=== PATIENT | male | born 1960 ===

== ENCOUNTER 2021-06-06 23:41 | Inpatient (IN) | payer SELFPAY ==
[~2021-06-06] VITALS: Ht 185 cm; Wt 159.1 kg
[2021-06-07] VITALS (25 sets, daily range): BP systolic 109–159; BP diastolic 77–122
[2021-06-07 05:17] LABS: BASOPHILS % (AUTO) 0 % (0-10); EOSINOPHILS % (AUTO) 0 % (0-10); HEMATOCRIT 43 % (40-54); HEMOGLOBIN 12.6 g/dL (13.3-17.7); LYMPHOCYTES # (AUTO) 0.4 10^3/uL (1.0-4.0); LYMPHOCYTES % (AUTO) 6 % (12-44); MEAN CORPUSCULAR HEMOGLOBIN 25 pg (25-34); MEAN CORPUSCULAR HGB CONC 30 g/dL (32-36); MEAN CORPUSCULAR VOLUME 85 fL (80-99); MEAN PLATELET VOLUME 10.4 fL (9.0-12.2); MONOCYTES # (AUTO) 0.1 10^3/uL (0.0-1.0); MONOCYTES % (AUTO) 1 % (0-12); NEUTROPHILS # (AUTO) 6.7 10^3/uL (1.8-7.8); NEUTROPHILS % (AUTO) 93 % (42-75); PLATELET COUNT 175 10^3/uL (130-400); WHITE BLOOD COUNT 7.2 10^3/uL (4.3-11.0)
[2021-06-07 05:38] LABS: POTASSIUM 6.2 MMOL/L (3.6-5.0)
[2021-06-07 05:43] LABS: CREATININE SERUM 1.05 MG/DL (0.60-1.30)
[2021-06-07 06:18] LABS: BAND NEUTROPHILS 1 %; HYPOCHROMASIA SLIGHT; LYMPHOCYTES % (MANUAL) 8 %; NEUTROPHILS % (MANUAL) 91 %
[2021-06-07 06:19] LABS: MICROCYTOSIS SLIGHT; PLATELET CLUMPS MARKED
[2021-06-07] MEDS ORDERED: RT-ALBUTEROL/IPRATROPIUM 3 ML (DUONEB) VIAL INH PRN (08:00)
--- NOTE | 2021-06-07 09:48 | Tele-ICU Progress Note ---
Progress Note video rounds completed 60 y/o male admitted with CHF and HTN Cardiology on consult K 6.2 will give glucose and insulin and recheck Focused Exam Height, Weight, BMI Height: '" Weight: lbs. oz. kg; 49.52 BMI Method: Laboratory Tests 06/07/21 04:15 TRAVON CORDOVA MD Jun 07, 2021 09:48
[2021-06-07] MEDS ORDERED: DEXTROSE 50% 50 ML (IMS) SYR IV ONE (10:00)
[2021-06-07] MEDS ORDERED: CALCIUM GLUC. 10% 4.65 MEQ/10 ML VIAL IV ONE (10:00)
[2021-06-07] MEDS ORDERED: inSUlin (REGULAR) HUMAN 1 UNIT/0.01 ML (CHARGE PER UNIT) IV ONE (10:00)
[2021-06-07] MEDS: RT-ALBUTEROL/IPRATROPIUM 3 ML (DUONEB) VIAL INH SCH ×4 (10:06→21:12)
--- NOTE | 2021-06-07 10:49 | Diagnostic Imaging Report ---
EXAM: Portable erect AP chest at 10:08 AM INDICATION: Congestive failure COMPARISON: There are no prior studies available for comparison. FINDINGS: The heart is enlarged. The central pulmonary vascularity does not seem to be engorged and at this time, there is no evidence for overt congestive failure. However, there is slight blunting of the right costophrenic angle. Whether this is due to pleural thickening or to a small effusion is not certain. There is no evidence for pneumonia and the mediastinum is not widened. The osseous structures are intact. IMPRESSION: There is cardiomegaly but there is no evidence for overt congestive failure or pneumonia. There may be a small amount of fluid in the right lung base however. Dictated by: Dictated on workstation # [id number]
[2021-06-07] MEDS ORDERED: meTOprolol 5 MG/5 ML (LOPRESSOR) VIAL IV ONE (11:00)
[2021-06-07] MEDS ORDERED: FUROSEMIDE 40 MG/4 ML INJ (LASIX) IVP ONE (11:00)
[2021-06-07] MEDS: ENOXAPARIN 40 MG/0.4 ML (LOVENOX) SYR SC SCH ×2 (12:09→22:26)
[2021-06-07 14:34] LABS: ABG BASE EXCESS 6.2 MMOL/L (-2.5-2.5); ABG OXYGEN SATURATION 96 % (94-100); ABG PO2 96 MMHG (79-93); ABG TCO2 35.5 MMOL/L (21.0-31.0)
--- NOTE | 2021-06-07 14:36 | History & Physical-Hospitalist ---
History of Present Illness HPI/Chief Complaint Deven Rivera is a 60-year-old male with past medical history of hypertension, atrial fibrillation, coronary artery disease, congestive heart failure, morbid obesity, tobacco abuse, who presented with shortness of breath. He reports that his legs have been getting more and more swollen. He reports that he has swell ing up to his thighs and his abdomen. He has not been taking his medications for about a month. It is unclear why he has not been taking them. He denies fevers and chills. He denies cough. He denies abdominal pain, nausea, vomiting, and diarrhea. He is a current every day smoker. He lives in [place], [place]. Source: patient Exam Limitations: no limitations Date Seen 06/07/21 Time Seen by a Provider: 10:20 Attending Physician Brenda Landry MD PCP Referring Physician Date of Admission Jun 07, 2021 at 01:24 Home Medications & Allergies Home Medications Reviewed patient Home Medication Reconciliation performed by pharmacy medication reconciliations radiation protection technician and/or nursing. Patients Allergies have been reviewed. Allergies Allergies Coded Allergies Penicillins (Verified Allergy, Unknown, 06/07/21) Past Bjhdppg-Etqyop-Sgijya Hx Patient Social History Tobacco Use?: Yes Tobacco type used: Cigarettes Smoking Status: Current Everyday Smoker Substance use?: Yes Alcohol Use?: No Current Status Communicates: Verbally Primary Language: Moroccan Preferred Spoken Language: Moroccan Is interpretation needed?: No Past Medical History Atrial Fibrillation, Chronic Edema/Swelling, Heart Attack, Hypertension Family Medical History No Pertinent Family Hx Review of Systems Constitutional: no symptoms reported EENTM: no symptoms reported Respiratory: short of breath Cardiovascular: no symptoms reported Gastrointestinal: no symptoms reported Genitourinary: no symptoms reported Musculoskeletal: no symptoms reported Skin: no symptoms reported Psychiatric/Neurological: No Symptoms Reported Physical Exam Physical Exam Vital Signs Vital Signs - First Documented 06/07/21 06/07/21 01:31 02:58 Temp 36.5 Pulse 104 Resp 24 B/P (MAP) 132/103 (113) Pulse Ox 98 O2 Delivery NIV Bilevel O2 Flow Rate 50.00 FiO2 50 Capillary Refill : Height, Weight, BMI Height: '" Weight: lbs. oz. kg; 49.52 BMI Method: General Appearance: No Apparent Distress, Obese HEENT: PERRL/EOMI, Pharynx Normal Neck: Normal Inspection, Supple Respiratory: No Respiratory Distress, Crackles Cardiovascular: Regular Rate, Rhythm, No Murmur Gastrointestinal: Normal Bowel Sounds, Non Tender, Soft Extremity: Non Tender, Pedal Edema, Other (Chronic venous stasis dermatitis) Neurologic/Psychiatric: Alert, Oriented x3 Skin: Normal Color, Warm/Dry Results Results/Procedures Labs Laboratory Tests 06/07/21 04:15 06/07/21 12:35 Patient resulted labs reviewed. Imaging: Reviewed Imaging Report Assessment/Plan Admission Diagnosis Acute on chronic congestive heart failure Admission Status: Inpatient Order (span 2 midnights) Reason for Inpatient Admission: Heart failure requiring IV diuresis Assessment and Plan Acute on chronic congestive heart failure Paroxysmal atrial fibrillation with rapid ventricular response Coronary artery disease Hypertension Cardiology consulted Echo ordered IV Lasix Continue Xarelto TeleICU following Hyperkalemia Lasix Monitor Morbid obesity Clinically significant, no acute management needs Tobacco abuse Refused nicotine patch Diagnosis/Problems Diagnosis/Problems (1) Acute on chronic congestive heart failure Status: Acute Qualifiers: Heart failure type: unspecified Qualified Codes: I50.9 - Heart failure, unspecified (2) Coronary artery disease Status: Chronic (3) Paroxysmal atrial fibrillation with rapid ventricular response Status: Acute (4) Hypertension Status: Chronic (5) Morbid obesity Status: Chronic (6) Tobacco abuse Status: Chronic (7) Hyperkalemia Status: Acute JUAN MCKEON MD Jun 07, 2021 14:36
[2021-06-07 14:42] LABS: ABG PCO2 76 MMHG (35-45); ABG PH 7.26 (7.37-7.43)
[2021-06-07 14:43] LABS: ALLENS TEST YES-POS; INSPIRED O2 6 L; PATIENT TEMP 36.5; VENTILATOR NO
--- NOTE | 2021-06-07 15:16 | Consultation-Cardiology ---
HPI-Cardiology Cardiology Consultation: Date of Consultation 06/07/21 Time Seen by a Provider: 15:20 Date of Admission Attending Physician Brenda Landry MD Admitting Physician Consulting Physician BARBARA MELGAR MD, MA, FACP, FACC, FSCAI, CCDS HPI: Chief Complaint: Reason for Card consult: CHF HPI 60 man transferred to the [facility] at this hosp from an outside hosp for eval and treatment of CHF. Pt is somnolent and is difficult to arouse. History is obtained from his ER records from the facility he presented to and from Dr Landry who had accepted the transfer. Apparently, he had come in for increasing leg and abdominal discomfort and increasing shortness of breath. No cp or palp or syncope. No other symptoms recorded Review of Systems-Cardiology Review of Systems Constitutional: other (He is not able to provide a review of systems because of somnolence) RSK-Fqqgus-Hxhgkr Hx Patient Social History Smoking Status: Current Everyday Smoker Alcohol Use?: No Tobacco type used: Cigarettes Past Medical History PMH As described under Assessment. Family Medical History Family Medical History: Family history could not be obtained from him due to reasons noted in HPI Allergies and Home Medications Allergies Coded Allergies: Penicillins (Verified Allergy, Unknown, 06/07/21) Patient Home Medication List Home Medication List Reviewed: Yes Physical Exam-Cardiology Physical Exam Vital Signs/I&O 06/07/21 06/07/21 06/07/21 06/07/21 03:15 04:00 05:00 06:00 Pulse 98 101 104 103 Resp 16 23 20 13 B/P (MAP) 130/99 (109) 127/82 (97) 133/95 (108) 130/107 (115) Pulse Ox 97 93 99 97 O2 Delivery NIV Bilevel NIV Bilevel NIV Bilevel NIV Bilevel O2 Flow Rate 50.00 50.00 50.00 50.00 06/07/21 06/07/21 06/07/21 06/07/21 07:00 07:00 07:34 07:34 Temp 36.5 Pulse 117 115 110 Resp 50 Pulse Ox 90 75 O2 Delivery Room Air High Flow N/C O2 Flow Rate 10.00 FiO2 21 06/07/21 06/07/21 06/07/21 06/07/21 07:46 08:00 08:00 09:00 Temp 36.0 Pulse 131 112 Resp 11 23 Pulse Ox 91 O2 Delivery High Flow N/C High Flow N/C High Flow N/C O2 Flow Rate 10.00 5.00 10.00 06/07/21 06/07/21 06/07/21 06/07/21 10:06 10:10 12:00 12:03 Temp 36.1 Pulse 134 Resp 24 B/P (MAP) 136/102 (113) Pulse Ox 96 100 91 O2 Delivery High Flow N/C High Flow N/C High Flow N/C O2 Flow Rate 10.00 6.00 10.00 06/07/21 12:55 Pulse 105 Capillary Refill : Constitutional: other (somnolent, very difficult to arouse, does not provide meaningful response to questions) HEENT: PERRL; No xanthelasmas are seen Neck: carotid pulses are 2 + bilaterally Respiratory: No accessory muscle use; other (fair, bilateral air entry; coarse basal crackles) Cardiovascular: irregularly irregular, S1 and S2, systolic murmur (soft SAUL at card base) Gastrointestinal: No tender; soft; No guarding, No rebound; audible bowel sounds Extremities: No clubbing, No cyanosis; significant edema (3-4+ bilateral leg edema and redness and keratosis of overlying leg skin) Neurologic/Psychiatric: other (not able to cooperate with a neuro exam) Skin: warm/dry, other (see under extremities exam) Data Review Labs Laboratory Tests 06/07/21 04:15: White Blood Count 7.2, Red Blood Count 5.00, Hemoglobin 12.6L, Hematocrit 43, Mean Corpuscular Volume 85, Mean Corpuscular Hemoglobin 25, Mean Corpuscular Hemoglobin Concent 30L, Red Cell Distribution Width 20.7H, Platelet Count 175, Mean Platelet Volume 10.4, Immature Granulocyte % (Auto) 0, Neutrophils (%) (Auto) 93H, Lymphocytes (%) (Auto) 6L, Monocytes (%) (Auto) 1, Eosinophils (%) (Auto) 0, Basophils (%) (Auto) 0, Neutrophils # (Auto) 6.7, Lymphocytes # (Auto) 0.4L, Monocytes # (Auto) 0.1, Eosinophils # (Auto) 0.0, Basophils # (Auto) 0.0, Immature Granulocyte # (Auto) 0.0, Neutrophils % (Manual) 91, Lymphocytes % (Manual) 8, Band Neutrophils 1, Clumped Platelets MARKED, Hypochromasia SLIGHT, Microcytosis SLIGHT, Sodium Level 135, Potassium Level 6.2H, Chloride Level 99, Carbon Dioxide Level 28, Anion Gap 8, Blood Urea Nitrogen 15, Creatinine 1.05, Estimat Glomerular Filtration Rate 72, BUN/Creatinine Ratio 14, Glucose Level 137H, Calcium Level 9.0 06/07/21 12:35: Potassium Level 6.1H, B-Type Natriuretic Peptide 1089.2H 06/07/21 14:26: Blood Gas Puncture Site L RADIAL, Blood Gas Patient Temperature 36.5, Arterial Blood pH 7.26*L, Arterial Blood Partial Pressure CO2 76*H, Arterial Blood Partial Pressure O2 96H, Arterial Blood HCO3 33H, Arterial Blood Total CO2 35.5H , Arterial Blood Oxygen Saturation 96, Arterial Blood Base Excess 6.2H, Justin Test YES-POS, Blood Gas Ventilator Setting NO, Blood Gas Inspired Oxygen 6 L Laboratory Tests 06/07/21 04:15 06/07/21 12:35 A/P-Cardiology Assessment/Admission Diagnosis Ac CHF of undetermined etiology - pt's records indicate a h/o CHF and his ER note mentions a h/o of LVEF 30% Hypersomnolence and impaired responsiveness of undetermined etiology Hyperkalemia DM II Suspected SYEDA Discussion and Recomendations * Treat CHF with diuretics as needed and as tolerated * Echo * Records mention reduced EF (30%): treat with beta-nima * Not suitable for MIMI-inhib or ARB because of hyperkalemia * Hospitalist service managing hyperkalemia and DM II BARBARA MELGAR MD [facility] Jun 07, 2021 15:16
[2021-06-07 16:19] LABS: ABG BASE EXCESS 7.4 MMOL/L (-2.5-2.5); ABG OXYGEN SATURATION 94 % (94-100); ABG PO2 80 MMHG (79-93); ABG TCO2 36.4 MMOL/L (21.0-31.0)
[2021-06-07 16:23] LABS: ABG PH 7.28 (7.37-7.43)
[2021-06-07 16:24] LABS: ABG PCO2 75 MMHG (35-45)
[2021-06-07 16:26] LABS: ALLENS TEST YES-POS; INSPIRED O2 30%; PATIENT TEMP 36.6; VENTILATOR NO
[2021-06-07] MEDS ORDERED: RIVAROXABAN 20 MG TABLET (XARELTO) PO SCH (17:00)
[2021-06-07] MEDS: dilTIAZem DRIP PRE-MIX 125 ML IV SCH (17:47)
[2021-06-07] MEDS: FUROSEMIDE 40 MG/4 ML INJ (LASIX) IVP SCH (17:48)
[2021-06-07 19:28] LABS: POTASSIUM 4.5 MMOL/L (3.6-5.0)
[2021-06-07 19:29] LABS: CALCIUM 9.2 MG/DL (8.5-10.1)
[2021-06-07 19:33] LABS: CREATININE SERUM 0.93 MG/DL (0.60-1.30)
[2021-06-07 20:07] LABS: ABG BASE EXCESS 9.8 MMOL/L (-2.5-2.5); ABG OXYGEN SATURATION 97 % (94-100); ABG PCO2 63 MMHG (35-45); ABG PH 7.37 (7.37-7.43); ABG PO2 81 MMHG (79-93); ABG TCO2 37.4 MMOL/L (21.0-31.0)
[2021-06-07 20:08] LABS: ALLENS TEST YES-POS; INSPIRED O2 30%; PATIENT TEMP 36.6; VENTILATOR NO
[2021-06-08] VITALS (29 sets, daily range): BP systolic 85–166; BP diastolic 7–126
[2021-06-08] MEDS: RT-ALBUTEROL/IPRATROPIUM 3 ML (DUONEB) VIAL INH SCH ×6 (01:58→22:26)
[2021-06-08] MEDS ORDERED: D5W 100 ML IVPB 100 ML IV ONE (02:03)
[2021-06-08] MEDS: dilTIAZem DRIP PRE-MIX 125 ML IV SCH ×2 (02:27→12:53)
[2021-06-08 04:48] LABS: BASOPHILS % (AUTO) 0 % (0-10); EOSINOPHILS % (AUTO) 0 % (0-10); HEMATOCRIT 40 % (40-54); HEMOGLOBIN 11.7 g/dL (13.3-17.7); LYMPHOCYTES # (AUTO) 1.8 10^3/uL (1.0-4.0); LYMPHOCYTES % (AUTO) 15 % (12-44); MEAN CORPUSCULAR HEMOGLOBIN 25 pg (25-34); MEAN CORPUSCULAR HGB CONC 29 g/dL (32-36); MEAN CORPUSCULAR VOLUME 85 fL (80-99); MEAN PLATELET VOLUME 10.2 fL (9.0-12.2); MONOCYTES # (AUTO) 1.2 10^3/uL (0.0-1.0); MONOCYTES % (AUTO) 10 % (0-12); NEUTROPHILS # (AUTO) 8.7 10^3/uL (1.8-7.8); NEUTROPHILS % (AUTO) 74 % (42-75); PLATELET COUNT 274 10^3/uL (130-400); WHITE BLOOD COUNT 11.7 10^3/uL (4.3-11.0)
[2021-06-08 04:59] LABS: POTASSIUM 4.1 MMOL/L (3.6-5.0)
[2021-06-08 05:00] LABS: CALCIUM 8.8 MG/DL (8.5-10.1)
[2021-06-08 05:05] LABS: CREATININE SERUM 0.91 MG/DL (0.60-1.30)
[2021-06-08 05:07] LABS: MAGNESIUM 1.8 MG/DL (1.6-2.4)
[2021-06-08] MEDS: POTASSIUM CL 10MEQ/50ML IVPB 50 ML IV SCH (05:08)
[2021-06-08] MEDS: MAGNESIUM 1 GM/100 ML IVPB 100 ML IV SCH (05:09)
[2021-06-08] MEDS: KCL 20 MEQ TAB (K-DUR) PO SCH (05:09)
[2021-06-08] MEDS: FUROSEMIDE 40 MG/4 ML INJ (LASIX) IVP SCH ×2 (06:04→17:23)
--- NOTE | 2021-06-08 08:45 | Progress Note - Cardiology ---
Cardiology SOAP Progress Note Subjective: Lying in bed with Bi-pap in place Lethargic Objective: I&O/Vital Signs 06/08/21 06/08/21 06/08/21 06/08/21 22:15 22:26 23:00 23:10 Pulse 90 79 78 Resp 16 19 19 B/P (MAP) 92/69 (77) 122/89 (100) Pulse Ox 70 60 96 O2 Delivery NIV Bilevel NIV Bilevel NIV Bilevel O2 Flow Rate 90.00 100.00 90.00 100.00 06/08/21 06/09/21 06/09/21 06/09/21 23:59 00:00 00:15 01:00 Temp 36.0 Pulse 75 74 Resp 19 B/P (MAP) 104/65 (78) Pulse Ox 91 O2 Delivery NIV Bilevel NIV Bilevel O2 Flow Rate 100.00 FiO2 90 06/09/21 06/09/21 06/09/21 06/09/21 01:00 02:00 02:06 03:00 Pulse 74 94 77 86 Resp 19 17 20 20 B/P (MAP) 100/56 (71) 100/68 (79) 113/91 (98) Pulse Ox 90 95 98 98 O2 Delivery NIV Bilevel NIV Bilevel NIV Bilevel O2 Flow Rate 100.00 100.00 100.00 100.00 06/09/21 06/09/21 06/09/21 06/09/21 04:00 04:00 04:00 05:15 Temp 35.8 Pulse 87 85 Resp 20 19 B/P (MAP) 97/75 (82) 102/78 (86) Pulse Ox 99 O2 Delivery NIV Bilevel NIV Bilevel NIV Bilevel O2 Flow Rate 100.00 100.00 FiO2 100 06/09/21 06/09/21 06/09/21 06/09/21 06:00 07:00 07:39 07:49 Pulse 96 98 87 Resp 19 16 B/P (MAP) 125/92 (103) Pulse Ox 100 O2 Delivery NIV Bilevel NIV Bilevel O2 Flow Rate 100.00 100.00 90.00 06/09/21 06/09/21 06/09/21 07:56 08:00 09:40 Temp 36.1 O2 Delivery NIV Bilevel High Flow N/C O2 Flow Rate 15.00 FiO2 80 06/09/21 00:00 Intake Total 1400 ml Output Total 825 ml Balance 575 ml Constitutional: other (somnolent, very difficult to arouse, does not provide meaningful response to questions) Respiratory: No accessory muscle use; other (fair, bilateral air entry; coarse basal crackles) Cardiovascular: irregularly irregular, S1 and S2, systolic murmur (soft SAUL at card base) Gastrointestional: No tender; soft; No guarding, No rebound; audible bowel sounds Extremities: No clubbing, No cyanosis; significant edema (3-4+ bilateral leg edema and redness and keratosis of overlying leg skin) Neurologic/Psychiatric: other (not able to cooperate with a neuro exam) Skin: warm/dry, other (see under extremities exam) Results/Procedures: Labs Laboratory Tests 06/09/21 04:27: White Blood Count 10.9, Red Blood Count 4.44, Hemoglobin 11.1L, Hematocrit 39L, Mean Corpuscular Volume 89, Mean Corpuscular Hemoglobin 25, Mean Corpuscular Hemoglobin Concent 28L, Red Cell Distribution Width 20.4H, Platelet Count 232, Mean Platelet Volume 10.0, Immature Granulocyte % (Auto) 0, Neutrophils (%) (Auto) 73, Lymphocytes (%) (Auto) 11L, Monocytes (%) (Auto) 15H, Eosinophils (%) (Auto) 0, Basophils (%) (Auto) 0, Neutrophils # (Auto) 7.9H, Lymphocytes # (Auto) 1.2, Monocytes # (Auto) 1.7H, Eosinophils # (Auto) 0.0, Basophils # (Auto) 0.0, Immature Granulocyte # (Auto) 0.0, Sodium Level 136, Potassium Level 4.8, Chloride Level 94L, Carbon Dioxide Level 33H, Anion Gap 9, Blood Urea Nit rogen 28H, Creatinine 1.47H, Estimat Glomerular Filtration Rate 49, BUN/Creatinine Ratio 19, Glucose Level 102, Calcium Level 8.5, Magnesium Level 1.9 A/P: Assessment: Ac CHF of undetermined etiology - pt's records indicate a h/o CHF and his ER note mentions a h/o of LVEF 30% A-fib - undetermined length of time - first seen on EKG on 06-07-21 Hypersomnolence and impaired responsiveness of undetermined etiology Hyperkalemia DM II Suspected SYEDA Plan: * Treat CHF with diuretics as needed and as tolerated * A-fib of undetermined length of time - Cardizem gtt for rate control - change to oral when more alert * Anticoagulation with Lovenox for now - change to oral when more alert * Echo * Records mention reduced EF (30%): treat with beta-nima * Not suitable for MIMI-inhib or ARB because of hyperkalemia * Hospitalist service managing hyperkalemia and DM II ELIZABETH DIAMOND PROFILING MACHINE SET UP OPERATOR Jun 08, 2021 08:45
[2021-06-08] MEDS: ENOXAPARIN 40 MG/0.4 ML (LOVENOX) SYR SC SCH (09:46)
[2021-06-08] MEDS: ENALAPRILAT 2.5 MG/2 ML (VASOTEC) VIAL IV SCH ×2 (09:46→21:07)
--- NOTE | 2021-06-08 09:52 | Tele-ICU Progress Note ---
Subjective Date Seen by a Provider: Jun 08, 2021 Time Seen by a Provider: 09:51 Sepsis Event Evaluation Height, Weight, BMI Height: '" Weight: lbs. oz. kg; 49.52 BMI Method: Exam Exam Patient acknowledged, consented, and participated in this virtual visit which was conducted using real time audio/video Vital Signs Date Time Temp Pulse Resp B/P (MAP) Pulse Ox O2 Delivery O2 Flow Rate FiO2 06/08/21 09:22 NIV Bilevel 45.00 06/08/21 09:02 High Flow N/C 2.00 06/08/21 09:00 112 19 166/107 (126) 80 NIV Bilevel 60.00 06/08/21 08:00 101 9 119/99 (106) 95 NIV Bilevel 60.00 06/08/21 08:00 NIV Bilevel 60 06/08/21 07:51 35.9 06/08/21 07:32 NIV Bilevel 60.00 06/08/21 07:17 106 20 93 100.00 06/08/21 07:00 95 34 122/88 (99) NIV Bilevel 30.00 06/08/21 06:46 102 06/08/21 06:00 107 21 108/86 (93) 96 NIV Bilevel 30.00 06/08/21 05:18 98 34 124/96 (105) 93 NIV Bilevel 30.00 06/08/21 04:00 NIV Bilevel 30 06/08/21 04:00 96 108/78 (88) 91 NIV Bilevel 30.00 06/08/21 03:00 98 110/58 (75) NIV Bilevel 30.00 06/08/21 02:00 106 22 132/81 (98) 98 NIV Bilevel 30.00 06/08/21 01:58 108 19 99 30.00 06/08/21 01:00 95 06/08/21 01:00 95 17 136/84 (101) 90 NIV Bilevel 30.00 06/08/21 00:00 97 22 109/78 (88) 97 NIV Bilevel 30.00 06/07/21 23:59 NIV Bilevel 30 06/07/21 23:30 92 24 109/77 (88) 93 NIV Bilevel 30.00 06/07/21 23:18 36.2 06/07/21 23:00 93 25 137/100 (112) 91 NIV Bilevel 30.00 06/07/21 22:00 98 24 136/87 (103) 92 NIV Bilevel 30.00 06/07/21 21:12 90 24 92 30.00 06/07/21 21:00 100 35 139/79 (99) 94 NIV Bilevel 30.00 06/07/21 20:00 105 22 113/85 (94) 96 NIV Bilevel 30.00 06/07/21 20:00 NIV Bilevel 30 06/07/21 19:42 36.7 06/07/21 19:30 103 27 131/83 (99) 95 NIV Bilevel 30.00 06/07/21 19:00 107 06/07/21 19:00 107 35 144/112 (123) 95 NIV Bilevel 30.00 06/07/21 18:18 117 24 100 30.00 06/07/21 18:00 111 23 149/100 (116) 100 NIV Bilevel 30.00 06/07/21 17:00 121 22 159/122 (134) 100 NIV Bilevel 30.00 06/07/21 16:00 123 24 151/109 (123) 100 NIV Bilevel 30.00 06/07/21 16:00 NIV Bilevel 30 06/07/21 15:56 36.3 06/07/21 15:28 NIV Bilevel 30.00 06/07/21 15:20 123 25 100 30.00 06/07/21 12:55 105 06/07/21 12:03 36.1 06/07/21 12:00 134 24 136/102 (113) 91 High Flow N/C 10.00 06/07/21 12:00 High Flow N/C 5.00 06/07/21 10:10 100 High Flow N/C 6.00 06/07/21 10:06 96 High Flow N/C 10.00 I & O 06/08/21 07:00 Intake Total 1265 ml Output Total 5675 ml Balance -4410 ml Height & Weight Height: '" Weight: lbs. oz. kg; 49.52 BMI Method: General Appearance: No Apparent Distress, Obese HEENT: PERRL/EOMI, Pharynx Normal Neck: Normal Inspection, Supple Respiratory: No Respiratory Distress, Crackles Cardiovascular: Regular Rate, Rhythm, No Murmur Extremity: Non Tender, Pedal Edema, Other (Chronic venous stasis dermatitis) Neurologic/Psychiatric: Alert, Oriented x3 Skin: Normal Color, Warm/Dry Results Lab Laboratory Tests 06/07/21 04:15 06/07/21 12:35 06/07/21 19:12 06/08/21 04:30 Assessment/Plan Assessment/Plan (Tele-ICU Physician , Progress Note ) Available chart/ vitals / labs / Images reviewed Video assessment done using teleICU camera, rest of exam as per RN Discussed with RN , EXAM PER RN Events overnight : Afebrile I/O = neg 4L Drips: cardizem Pressors: , hemodynamically stable Consultants: laura Hospital course: 06/07 - ARF , afib RVR A/P Acute resp failure , CHF - on BIPAP 08/03 - 30-60 % - will try to get use NIPPV PRN - IF has SYEDA - will cont BIPAP nightly Encephalopathy - improving CHF - as per cardiology - on lasix - ECHO pending PAF , RVR - rate controlled on cardizen gtt - AC ? as per PCP / cards - xarelto 1 dose given on 06/07 Reportedly SYEDA _ - ? on CPAP - on xarelto Hyperkalemia - was tx - follow Lines : priph (Central Line Necessity Reviewed) Acharya: OG: Nutrition: PO Analgesia: Anxiety/ delirium VTE Prophylaxis: L 40 q12 Stress Ulcer Prophylaxis: - Glycemic Control: Plans in collaboration with bedside consultants and IM MDs. Discussed with RN to reach out if any questions or concerns A total of 32 minutes of critical care time was devoted to this patient today, required to treat and/or prevent further deterioration of critical care condition ( as above) . GLORIA MORGAN MD Jun 08, 2021 09:52
--- NOTE | 2021-06-08 10:53 | Diagnostic Imaging Report ---
INDICATION: Cough. TIME OF EXAM: 10:44 a.m. COMPARISON: Correlation is made with prior chest from 06/07/2021. FINDINGS: The heart is enlarged. The lungs appear to be clear. No infiltrate or failure is seen. There is no effusion or pneumothorax. IMPRESSION: No acute abnormality is detected. Dictated by: Dictated on workstation # [id number]
--- NOTE | 2021-06-08 12:06 | Progress Note ---
Subjective Subjective Date Seen by Provider: Jun 08, 2021 Time Seen by Provider: 08:45 Patient reports feel ok this morning, he is breathing fine and does not feel short of air. He has been able to sleep well. Denies any N/V, sweats or chills. He has developed a productive cough since arriving. He reports mild chest pain that is generalized and does not radiate. Review of Systems General: No Chills, No Night Sweats HEENT: No Visual Changes Pulmonary: No Dyspnea; Cough (productive) Cardiovascular: Chest Pain (generalized, minor) Gastrointestinal: No: Nausea, Vomiting, Abdominal Pain Objective Exam Vital Signs Vital Signs Date Time Temp Pulse Resp B/P (MAP) Pulse Ox O2 Delivery O2 Flow Rate FiO2 06/08/21 11:08 105 20 92 30.00 06/08/21 11:00 88 17 138/114 (122) 95 NIV Bilevel 30.00 06/08/21 11:00 NIV Bilevel 30.00 06/08/21 10:59 NIV Bilevel 40.00 06/08/21 10:00 101 16 158/89 (112) 89 NIV Bilevel 45.00 06/08/21 09:22 NIV Bilevel 45.00 06/08/21 09:02 High Flow N/C 2.00 06/08/21 09:00 112 19 166/107 (126) 80 NIV Bilevel 60.00 06/08/21 08:00 101 9 119/99 (106) 95 NIV Bilevel 60.00 06/08/21 08:00 NIV Bilevel 60 06/08/21 07:51 35.9 06/08/21 07:32 NIV Bilevel 60.00 06/08/21 07:17 106 20 93 100.00 06/08/21 07:00 95 34 122/88 (99) NIV Bilevel 30.00 06/08/21 06:46 102 06/08/21 06:00 107 21 108/86 (93) 96 NIV Bilevel 30.00 06/08/21 05:18 98 34 124/96 (105) 93 NIV Bilevel 30.00 06/08/21 04:00 NIV Bilevel 30 06/08/21 04:00 96 108/78 (88) 91 NIV Bilevel 30.00 06/08/21 03:00 98 110/58 (75) NIV Bilevel 30.00 06/08/21 02:00 106 22 132/81 (98) 98 NIV Bilevel 30.00 06/08/21 01:58 108 19 99 30.00 06/08/21 01:00 95 06/08/21 01:00 95 17 136/84 (101) 90 NIV Bilevel 30.00 06/08/21 00:00 97 22 109/78 (88) 97 NIV Bilevel 30.00 06/07/21 23:59 NIV Bilevel 30 06/07/21 23:30 92 24 109/77 (88) 93 NIV Bilevel 30.00 06/07/21 23:18 36.2 06/07/21 23:00 93 25 137/100 (112) 91 NIV Bilevel 30.00 06/07/21 22:00 98 24 136/87 (103) 92 NIV Bilevel 30.00 06/07/21 21:12 90 24 92 30.00 06/07/21 21:00 100 35 139/79 (99) 94 NIV Bilevel 30.00 06/07/21 20:00 105 22 113/85 (94) 96 NIV Bilevel 30.00 06/07/21 20:00 NIV Bilevel 30 06/07/21 19:42 36.7 06/07/21 19:30 103 27 131/83 (99) 95 NIV Bilevel 30.00 06/07/21 19:00 107 06/07/21 19:00 107 35 144/112 (123) 95 NIV Bilevel 30.00 06/07/21 18:18 117 24 100 30.00 06/07/21 18:00 111 23 149/100 (116) 100 NIV Bilevel 30.00 06/07/21 17:00 121 22 159/122 (134) 100 NIV Bilevel 30.00 06/07/21 16:00 123 24 151/109 (123) 100 NIV Bilevel 30.00 06/07/21 16:00 NIV Bilevel 30 06/07/21 15:56 36.3 06/07/21 15:28 NIV Bilevel 30.00 06/07/21 15:20 123 25 100 30.00 06/07/21 12:55 105 06/07/21 12:03 36.1 I & O 06/08/21 07:00 Intake Total 1265 ml Output Total 5675 ml Balance -4410 ml General Appearance: No Apparent Distress, Obese HEENT: PERRL/EOMI, Other (wearing BiPAP) Neck: Normal Inspection, Supple Respiratory: No Respiratory Distress, Decreased Breath Sounds Cardiovascular: No Murmur, Irregularly Irregular, Tachycardia Gastrointestinal: Normal Bowel Sounds, Non Tender, Soft Genital/Rectal: Other (scrotum swollen) Extremity: Non Tender, Pedal Edema, Other (Chronic venous stasis dermatitis bilateral LE) Neurologic/Psychiatric: Alert, Oriented x3 Skin: Normal Color, Warm/Dry Results Lab Laboratory Tests 06/07/21 12:35: Potassium Level 6.1H, B-Type Natriuretic Peptide 1089.2H 06/07/21 14:26: Blood Gas Puncture Site L RADIAL, Blood Gas Patient Temperature 36.5, Arterial Blood pH 7.26*L, Arterial Blood Partial Pressure CO2 76*H, Arterial Blood Partial Pressure O2 96H, Arterial Blood HCO3 33H, Arterial Blood Total CO2 35.5H , Arterial Blood Oxygen Saturation 96, Arterial Blood Base Excess 6.2H, Justin Test YES-POS, Blood Gas Ventilator Setting NO, Blood Gas Inspired Oxygen 6 L 06/07/21 16:10: Blood Gas Puncture Site LR, Blood Gas Patient Temperature 36.6, Arterial Blood pH 7.28*L, Arterial Blood Partial Pressure CO2 75*H, Arterial Blood Partial Pressure O2 80, Arterial Blood HCO3 34H, Arterial Blood Total CO2 36.4H, Arterial Blood Oxygen Saturation 94, Arterial Blood Base Excess 7.4H, Justin Test YES-POS, Blood Gas Ventilator Setting NO, Blood Gas Inspired Oxygen 30% 06/07/21 19:12: Potassium Level 4.5, Sodium Level 139, Chloride Level 98, Carbon Dioxide Level 30, Anion Gap 11, Blood Urea Nitrogen 18, Creatinine 0.93, Estimat Glomerular Filtration Rate 83, BUN/Creatinine Ratio 19, Glucose Level 100, Calcium Level 9.2 06/07/21 19:55: Blood Gas Puncture Site RT RAD, Blood Gas Patient Temperature 36.6, Arterial Blood pH 7.37, Arterial Blood Partial Pressure CO2 63H, Arterial Blood Partial Pressure O2 81, Arterial Blood HCO3 35H, Arterial Blood Total CO2 37.4H, Arterial Blood Oxygen Saturation 97, Arterial Blood Base Excess 9.8H, Justin Test YES-POS, Blood Gas Ventilator Setting NO, Blood Gas Inspired Oxygen 30% 06/08/21 04:30: White Blood Count 11.7H, Red Blood Count 4.73, Hemoglobin 11.7L, Hematocrit 40, Mean Corpuscular Volume 85, Mean Corpuscular Hemoglobin 25, Mean Corpuscular Hemoglobin Concent 29L, Red Cell Distribution Width 20.5H, Platelet Count 274, Mean Platelet Volume 10.2, Immature Granulocyte % (Auto) 0, Neutrophils (%) (Auto) 74, Lymphocytes (%) (Auto) 15, Monocytes (%) (Auto) 10, Eosinophils (%) (Auto) 0, Basophils (%) (Auto) 0, Neutrophils # (Auto) 8.7H, Lymphocytes # (Auto) 1.8, Monocytes # (Auto) 1.2H, Eosinophils # (Auto) 0.0, Basophils # (Auto) 0.0, Immature Granulocyte # (Auto) 0.0, Sodium Level 141, Potassium Level 4.1, Chloride Level 98, Carbon Dioxide Level 32, Anion Gap 11, Blood Urea Nitrogen 19H, Creatinine 0.91, Estimat Glomerular Filtration Rate 85, BUN/Creatinine Ratio 21, Glucose Level 95, Calcium Level 8.8, Magnesium Level 1.8, Procalcitonin 0.05 Assessment/Plan Assessment/Plan Assessment and Plan Acute on chronic congestive heart failure Paroxysmal atrial fibrillation with rapid ventricular response Coronary artery disease Hypertension Cardiology consulted - Started Diltiazem, Metoprolol and Enalapril. Echo ordered IV Lasix Restart Xarelto TeleICU following Continue BiPAP at night Leukocytosis Repeated CXR today, no sign of pneumonia. Will continue to monitor for any changes. Hyperkalemia Lasix Resolved at present Morbid obesity Clinically significant, no acute management needs Tobacco abuse Refused nicotine patch Problems: (1) Acute on chronic congestive heart failure Qualifiers: Qualified Codes: I50.33 - Acute on chronic diastolic (congestive) heart failure (2) Paroxysmal atrial fibrillation with rapid ventricular response (3) Hypertension Qualifiers: Qualified Codes: I10 - Essential (primary) hypertension (4) Tobacco abuse (5) Morbid obesity (6) Coronary artery disease Supervisory-Addendum Brief Verification & Attestation Participated in pt care: history, MDM, physical Personally performed: exam, history, MDM, supervision of care Care discussed with: Medical Student Procedures: n/a Results interpretation: Verified all documentation A medical student performed and documented this service in my presence. I reviewed and verified all information documented by the medical student and made modifications to such information, when appropriate. I personally performed the physical exam and medical decision making. ANTONIA CHEEMA Jun 08, 2021 12:06 JUAN MCKEON MD Jun 08, 2021 21:08
[2021-06-08] MEDS: meTOprolol 5 MG/5 ML (LOPRESSOR) VIAL IV SCH ×3 (12:53→23:43)
[2021-06-08] MEDS ORDERED: METO50TA15 PO (13:51)
[2021-06-08] MEDS ORDERED: LISI2.5T13 PO (13:51)
[2021-06-08] MEDS ORDERED: RIVA20TA PO (13:51)
[2021-06-08] MEDS ORDERED: METF-397 PO (13:51)
--- NOTE | 2021-06-08 15:22 | Progress Note - Cardiology ---
Cardiology SOAP Progress Note Subjective: Does not report any symptoms because difficult to awaken Objective: I&O/Vital Signs 06/08/21 06/08/21 06/08/21 06/08/21 04:00 04:00 05:18 06:00 Pulse 96 98 107 Resp 34 21 B/P (MAP) 108/78 (88) 124/96 (105) 108/86 (93) Pulse Ox 91 93 96 O2 Delivery NIV Bilevel NIV Bilevel NIV Bilevel NIV Bilevel O2 Flow Rate 30.00 30.00 30.00 FiO2 30 06/08/21 06/08/21 06/08/21 06/08/21 06:46 07:00 07:17 07:32 Pulse 102 95 106 Resp 34 20 B/P (MAP) 122/88 (99) Pulse Ox 93 O2 Delivery NIV Bilevel NIV Bilevel O2 Flow Rate 30.00 100.00 60.00 06/08/21 06/08/21 06/08/21 06/08/21 07:51 08:00 08:00 09:00 Temp 35.9 Pulse 101 112 Resp 9 19 B/P (MAP) 119/99 (106) 166/107 (126) Pulse Ox 95 80 O2 Delivery NIV Bilevel NIV Bilevel NIV Bilevel O2 Flow Rate 60.00 60.00 FiO2 60 06/08/21 06/08/21 06/08/21 06/08/21 09:02 09:22 10:00 10:59 Pulse 101 Resp 16 B/P (MAP) 158/89 (112) Pulse Ox 89 O2 Delivery High Flow N/C NIV Bilevel NIV Bilevel NIV Bilevel O2 Flow Rate 2.00 45.00 45.00 40.00 06/08/21 06/08/21 06/08/21 06/08/21 11:00 11:00 11:08 12:00 Pulse 88 105 88 Resp 17 20 17 B/P (MAP) 138/114 (122) 153/93 (113) Pulse Ox 95 92 88 O2 Delivery NIV Bilevel NIV Bilevel NIV Bilevel O2 Flow Rate 30.00 30.00 30.00 30.00 06/08/21 06/08/21 06/08/21 06/08/21 12:37 12:46 13:00 13:11 Temp 36.0 Pulse 95 94 Resp 25 B/P (MAP) 132/73 (92) Pulse Ox 95 96 O2 Delivery NIV Bilevel NIV Bilevel O2 Flow Rate 30.00 FiO2 30 06/08/21 06/08/21 06/08/21 06/08/21 13:20 14:00 14:09 15:00 Pulse 81 90 B/P (MAP) 97/68 (78) 120/73 (89) Pulse Ox 88 93 O2 Delivery High Flow N/C High Flow N/C NIV Bilevel NIV Bilevel O2 Flow Rate 6.00 6.00 30.00 30.00 06/07/21 23:59 Intake Total 600 ml Output Total 4750 ml Balance -4150 ml Constitutional: other (somnolent, very difficult to arouse, does not provide meaningful response to questions) Respiratory: No accessory muscle use; other (fair, bilateral air entry; coarse basal crackles) Cardiovascular: irregularly irregular, S1 and S2, systolic murmur (soft SAUL at card base) Gastrointestional: No tender; soft; No guarding, No rebound; audible bowel sounds Extremities: No clubbing, No cyanosis; significant edema (3-4+ bilateral leg edema and redness and keratosis of overlying leg skin) Neurologic/Psychiatric: other (not able to cooperate with a neuro exam) Skin: warm/dry, other (see under extremities exam) Results/Procedures: Labs Laboratory Tests 06/07/21 16:10: Blood Gas Puncture Site LR, Blood Gas Patient Temperature 36.6, Arterial Blood pH 7.28*L, Arterial Blood Partial Pressure CO2 75*H, Arterial Blood Partial Pressure O2 80, Arterial Blood HCO3 34H, Arterial Blood Total CO2 36.4H, Arterial Blood Oxygen Saturation 94, Arterial Blood Base Excess 7.4H, Justin Test YES-POS, Blood Gas Ventilator Setting NO, Blood Gas Inspired Oxygen 30% 06/07/21 19:12: Sodium Level 139, Potassium Level 4.5, Chloride Level 98, Carbon Dioxide Level 30, Anion Gap 11, Blood Urea Nitrogen 18, Creatinine 0.93, Estimat Glomerular Filtration Rate 83, BUN/Creatinine Ratio 19, Glucose Level 100, Calcium Level 9.2 06/07/21 19:55: Blood Gas Puncture Site RT RAD, Blood Gas Patient Temperature 36.6, Arterial Blood pH 7.37, Arterial Blood Partial Pressure CO2 63H, Arterial Blood Partial Pressure O2 81, Arterial Blood HCO3 35H, Arterial Blood Total CO2 37.4H, Arterial Blood Oxygen Saturation 97, Arterial Blood Base Excess 9.8H, Justin Test YES-POS, Blood Gas Ventilator Setting NO, Blood Gas Inspired Oxygen 30% 06/08/21 04:30: Sodium Level 141, Potassium Level 4.1, Chloride Level 98, Carbon Dioxide Level 32, Anion Gap 11, Blood Urea Nitrogen 19H, Creatinine 0.91, Estimat Glomerular Filtration Rate 85, BUN/Creatinine Ratio 21, Glucose Level 95, Calcium Level 8.8, White Blood Count 11.7H, Red Blood Count 4.73, Hemoglobin 11.7L, Hematocrit 40, Mean Corpuscular Volume 85, Mean Corpuscular Hemoglobin 25, Mean Corpuscular Hemoglobin Concent 29L, Red Cell Distribution Width 20.5H, Platelet Count 274, Mean Platelet Volume 10.2, Immature Granulocyte % (Auto) 0, Neutrophils (%) (Auto) 74, Lymphocytes (%) (Auto) 15, Monocytes (%) (Auto) 10, Eosinophils (%) (Auto) 0, Basophils (%) (Auto) 0, Neutrophils # (Auto) 8.7H, Lymphocytes # (Auto) 1.8, Monocytes # (Auto) 1.2H, Eosinophils # (Auto) 0.0, Basophils # (Auto) 0.0, Immature Granulocyte # (Auto) 0.0, Magnesium Level 1.8, Procalcitonin 0.05 A/P: Assessment: Ac systolic CHF of undetermined etiology - Echo on 06/08/21: Mild to mod cardiomegaly, LVEF 45-50%. AoV sclerosis w/o stenosis. Mod TR. PASP 35 - 40 mmHg A-fib - undetermined length of time - first seen on EKG on 06-07-21 Hypersomnolence and impaired responsiveness of undetermined etiology Hyperkalemia DM II Suspected SYEDA Plan: * Treat CHF with diuretics as needed and as tolerated * A-fib of undetermined length of time - Cardizem gtt for rate control - change to oral when more alert * Anticoagulation with Lovenox for now - change to oral when more alert * Add iv bb and MIMI-inhib, change to oral when feasible * Monitor labs BARBARA MELGAR MD FACP [facility] Jun 08, 2021 15:22
[2021-06-08] MEDS ORDERED: ONDANSETRON 4 MG/2 ML (SDV) Z0FRAN IVP PRN (17:00)
[2021-06-08] MEDS: RIVAROXABAN 20 MG TABLET (XARELTO) PO SCH (17:23)
[2021-06-09] VITALS (28 sets, daily range): BP systolic 95–141; BP diastolic 56–119
[2021-06-09] MEDS: RT-ALBUTEROL/IPRATROPIUM 3 ML (DUONEB) VIAL INH SCH ×6 (02:06→21:33)
[2021-06-09 05:02] LABS: BASOPHILS % (AUTO) 0 % (0-10); EOSINOPHILS % (AUTO) 0 % (0-10); HEMATOCRIT 39 % (40-54); HEMOGLOBIN 11.1 g/dL (13.3-17.7); LYMPHOCYTES # (AUTO) 1.2 10^3/uL (1.0-4.0); LYMPHOCYTES % (AUTO) 11 % (12-44); MEAN CORPUSCULAR HEMOGLOBIN 25 pg (25-34); MEAN CORPUSCULAR HGB CONC 28 g/dL (32-36); MEAN CORPUSCULAR VOLUME 89 fL (80-99); MONOCYTES # (AUTO) 1.7 10^3/uL (0.0-1.0); MONOCYTES % (AUTO) 15 % (0-12); NEUTROPHILS # (AUTO) 7.9 10^3/uL (1.8-7.8); NEUTROPHILS % (AUTO) 73 % (42-75); PLATELET COUNT 232 10^3/uL (130-400); WHITE BLOOD COUNT 10.9 10^3/uL (4.3-11.0)
[2021-06-09 05:16] LABS: POTASSIUM 4.8 MMOL/L (3.6-5.0)
[2021-06-09 05:17] LABS: CALCIUM 8.5 MG/DL (8.5-10.1)
[2021-06-09] MEDS: POTASSIUM CL 10MEQ/50ML IVPB 50 ML IV SCH (05:17)
[2021-06-09] MEDS: KCL 20 MEQ TAB (K-DUR) PO SCH (05:17)
[2021-06-09 05:21] LABS: CREATININE SERUM 1.47 MG/DL (0.60-1.30)
[2021-06-09 05:23] LABS: MAGNESIUM 1.9 MG/DL (1.6-2.4)
[2021-06-09] MEDS: MAGNESIUM 1 GM/100 ML IVPB 100 ML IV SCH (05:28)
[2021-06-09] MEDS: meTOprolol 5 MG/5 ML (LOPRESSOR) VIAL IV SCH ×3 (06:13→17:45)
[2021-06-09] MEDS: FUROSEMIDE 40 MG/4 ML INJ (LASIX) IVP SCH (06:13)
[2021-06-09] MEDS: ENALAPRILAT 2.5 MG/2 ML (VASOTEC) VIAL IV SCH ×2 (08:36→20:47)
--- NOTE | 2021-06-09 10:11 | Progress Note - Cardiology ---
Cardiology SOAP Progress Note Subjective: Lying in bed More alert today No c/o CP or palpitations Denies SOB Reports occ productive cough Objective: I&O/Vital Signs 06/09/21 06/09/21 06/09/21 06/09/21 21:00 21:33 22:00 23:00 Pulse 122 117 116 107 Resp 9 19 15 19 B/P (MAP) 119/68 (85) 119/78 (92) 109/80 (90) Pulse Ox 100 96 100 97 O2 Delivery NIV Bilevel NIV Bilevel NIV Bilevel O2 Flow Rate 70.00 60.00 70.00 70.00 06/10/21 06/10/21 06/10/21 06/10/21 00:00 00:00 01:00 01:00 Pulse 125 116 118 Resp 14 18 B/P (MAP) 100/83 (89) 143/89 (107) Pulse Ox 97 100 O2 Delivery NIV Bilevel NIV Bilevel NIV Bilevel O2 Flow Rate 70.00 70.00 FiO2 80 06/10/21 06/10/21 06/10/21 06/10/21 02:00 02:42 03:00 04:00 Pulse 113 129 129 Resp 16 17 B/P (MAP) 87/75 (79) 121/98 (106) Pulse Ox 89 100 98 O2 Delivery NIV Bilevel NIV Bilevel NIV Bilevel O2 Flow Rate 70.00 50.00 70.00 FiO2 60 06/10/21 06/10/21 06/10/21 06/10/21 04:00 04:26 05:00 06:00 Temp 36.4 Pulse 129 125 105 Resp 11 18 B/P (MAP) 115/82 (93) 105/63 (77) Pulse Ox 99 98 96 O2 Delivery NIV Bilevel NIV Bilevel NIV Bilevel NIV Bilevel O2 Flow Rate 70.00 60.00 60.00 60.00 06/10/21 06/10/21 06/10/21 06/10/21 07:00 07:25 07:40 08:00 Temp 36.4 Pulse 112 102 Resp 16 Pulse Ox 100 O2 Delivery NIV Bilevel O2 Flow Rate 50.00 FiO2 60 06/10/21 00:00 Intake Total 250 ml Output Total 1200 ml Balance -950 ml Constitutional: other (more alert today, but responses to questions are very brief and he drifts back to sleep very quickly) Respiratory: No accessory muscle use; other (fair, bilateral air entry; coarse basal crackles) Cardiovascular: irregularly irregular, S1 and S2, systolic murmur (soft SAUL at card base) Gastrointestional: No tender; soft; No guarding, No rebound; audible bowel sounds Extremities: No clubbing, No cyanosis; significant edema (mod bilat LE swelling; improved; redness and keratosis of overlying leg skin) Neurologic/Psychiatric: other (not able to cooperate with a neuro exam) Skin: warm/dry, other (see under extremities exam) Results/Procedures: Labs Laboratory Tests 06/10/21 04:35: White Blood Count 9.0, Red Blood Count 4.44, Hemoglobin 11.3L, Hematocrit 39L, Mean Corpuscular Volume 88, Mean Corpuscular Hemoglobin 26, Mean Corpuscular Hemoglobin Concent 29L, Red Cell Distribution Width 20.1H, Platelet Count 192, Mean Platelet Volume 9.5, Immature Granulocyte % (Auto) 0, Neutrophils (%) (Auto) 74, Lymphocytes (%) (Auto) 13, Monocytes (%) (Auto) 13H, Eosinophils (%) (Auto) 0, Basophils (%) (Auto) 0, Neutrophils # (Auto) 6.7, Lymphocytes # (Auto) 1.1, Monocytes # (Auto) 1.1H, Eosinophils # (Auto) 0.0, Basophils # (Auto) 0.0, Immature Granulocyte # (Auto) 0.0, Sodium Level 137, Potassium Level 4.6, Chloride Level 95L, Carbon Dioxide Level 33H, Anion Gap 9, Blood Urea Nitrogen 21H, Creatinine 0.85, Estimat Glomerular Filtration Rate 92, BUN/Creatinine Ratio 25, Glucose Level 94, Calcium Level 8.8, Phosphorus Level 2.6, Magnesium Level 2.0 A/P: Assessment: Ac systolic CHF of undetermined etiology - Echo on 06/08/21: Mild to mod cardiomegaly, LVEF 45-50%. AoV sclerosis w/o stenosis. Mod TR. PASP 35 - 40 mmHg A-fib - undetermined length of time - first seen on EKG on 06-07-21 Hypersomnolence and impaired responsiveness of undetermined etiology - somewhat improved this morning Hyperkalemia - resolved DM II Suspected SYEDA Plan: * Treat CHF with diuretics as needed and as tolerated - diuretics on hold at this time d/t worsening renal function likely d/t aggressive diuretics * A-fib of undetermined length of time - Cardizem gtt for rate control - change to oral when more alert * Anticoagulation with Lovenox for now - change to oral when more alert * Add iv bb and MIMI-inhib, change to oral when feasible * Monitor labs ELIZABETH DIAMOND Jun 09, 2021 10:11
--- NOTE | 2021-06-09 10:43 | Tele-ICU Progress Note ---
Subjective Date Seen by a Provider: Jun 09, 2021 Time Seen by a Provider: 10:42 Sepsis Event Evaluation Height, Weight, BMI Height: '" Weight: lbs. oz. kg; 49.52 BMI Method: Exam Exam Patient acknowledged, consented, and participated in this virtual visit which was conducted using real time audio/video Vital Signs Date Time Temp Pulse Resp B/P (MAP) Pulse Ox O2 Delivery O2 Flow Rate FiO2 06/09/21 10:15 Vapotherm 40.00 100.00 06/09/21 10:10 96 Vapotherm 40.00 100 06/09/21 09:40 High Flow N/C 15.00 06/09/21 08:00 NIV Bilevel 80 06/09/21 07:56 36.1 06/09/21 07:49 NIV Bilevel 90.00 06/09/21 07:39 87 16 100 100.00 06/09/21 07:00 98 06/09/21 06:00 96 19 125/92 (103) NIV Bilevel 100.00 06/09/21 05:15 85 19 102/78 (86) NIV Bilevel 100.00 06/09/21 04:00 NIV Bilevel 100 06/09/21 04:00 35.8 06/09/21 04:00 87 20 97/75 (82) 99 NIV Bilevel 100.00 06/09/21 03:00 86 20 113/91 (98) 98 NIV Bilevel 100.00 06/09/21 02:06 77 20 98 100.00 06/09/21 02:00 94 17 100/68 (79) 95 NIV Bilevel 100.00 06/09/21 01:00 74 19 100/56 (71) 90 NIV Bilevel 100.00 06/09/21 01:00 74 06/09/21 00:15 75 19 104/65 (78) 91 NIV Bilevel 100.00 06/09/21 00:00 36.0 06/08/21 23:59 NIV Bilevel 90 06/08/21 23:10 NIV Bilevel 100.00 06/08/21 23:00 78 19 122/89 (100) 96 NIV Bilevel 90.00 06/08/21 22:26 79 19 60 100.00 06/08/21 22:15 90 16 92/69 (77) 70 NIV Bilevel 90.00 06/08/21 21:00 89 20 106/75 (85) 91 NIV Bilevel 90.00 06/08/21 20:00 81 20 107/82 (90) 98 NIV Bilevel 90.00 06/08/21 20:00 NIV Bilevel 90.00 06/08/21 20:00 NIV Bilevel 90 06/08/21 19:43 36.2 06/08/21 19:05 97 1 99 100.00 06/08/21 19:00 93 06/08/21 19:00 93 20 112/73 (86) 99 NIV Bilevel 100.00 06/08/21 18:39 NIV Bilevel 100.00 06/08/21 18:34 NIV Bilevel 40.00 06/08/21 18:00 91 17 120/74 (89) High Flow N/C 6.00 06/08/21 17:39 High Flow N/C 6.00 06/08/21 17:00 96 12 156/126 (136) 94 NIV Bilevel 30.00 06/08/21 16:44 36.6 06/08/21 16:10 95 NIV Bilevel 30 06/08/21 16:00 90 85/49 (61) 91 NIV Bilevel 30.00 06/08/21 15:42 93 High Flow N/C 6.00 06/08/21 15:00 90 120/73 (89) 93 NIV Bilevel 30.00 06/08/21 14:09 NIV Bilevel 30.00 06/08/21 14:00 81 97/68 (78) 88 High Flow N/C 6.00 06/08/21 13:20 High Flow N/C 6.00 06/08/21 13:11 36.0 06/08/21 13:00 94 25 132/73 (92) 96 NIV Bilevel 30.00 06/08/21 12:46 95 NIV Bilevel 30 06/08/21 12:37 95 06/08/21 12:00 88 17 153/93 (113) 88 NIV Bilevel 30.00 06/08/21 11:08 105 20 92 30.00 06/08/21 11:00 88 17 138/114 (122) 95 NIV Bilevel 30.00 06/08/21 11:00 NIV Bilevel 30.00 06/08/21 10:59 NIV Bilevel 40.00 I & O 10/12/21 07:00 Intake Total 2260 ml Output Total 2600 ml Balance -340 ml Height & Weight Height: '" Weight: lbs. oz. kg; 49.52 BMI Method: General Appearance: No Apparent Distress, Obese HEENT: PERRL/EOMI, Other (wearing BiPAP) Neck: Normal Inspection, Supple Respiratory: No Respiratory Distress, Decreased Breath Sounds Cardiovascular: No Murmur, Irregularly Irregular, Tachycardia Extremity: Non Tender, Pedal Edema, Other (Chronic venous stasis dermatitis bilateral LE) Neurologic/Psychiatric: Alert, Oriented x3 Skin: Normal Color, Warm/Dry Results Lab Laboratory Tests 06/07/21 12:35 06/07/21 19:12 06/08/21 04:30 06/09/21 04:27 Assessment/Plan Assessment/Plan (Tele-ICU Physician , Progress Note ) Available chart/ vitals / labs / Images reviewed Video assessment done using teleICU camera, rest of exam as per RN Discussed with RN , EXAM PER RN Events overnight : BIPAP -> VAPOTHERM Afebrile I/O = neg 1 L Drips: cardizem Pressors: , hemodynamically stable Consultants: laura Hospital course: 06/07 - ARF , afib RVR 06/08 - NC 6 l 06/09- BIPAP , VAPOTHERM , off cardizemn gtt, JESSICA ?1.4 - lasix stopped A/P Acute resp failure , CHF - on BIPAP 08/03 , day FIO2 - VAPOTHERM - WORSENING - follow cxr , encourage BIPAP ( low PCT - , not on ABX ) - check cxr - IF has SYEDA - will cont BIPAP nightly Encephalopathy - improving , repeat abg on vapotherm CHF - as per cardiology - lasix on hold with JESSICA - Echo on 06/08/21: Mild to mod cardiomegaly, LVEF 45-50%. AoV sclerosis w/o stenosis. Mod TR. PASP 35 - 40 mmHg PAF , RVR - rate controlled, OFF cardizen gtt - AC - xarelto JESSICA - possible due to agressive diuresis - follow off lasix Reportedly SYEDA - ? on CPAP Hyperkalemia - was tx - WNL now Lines : priph (Central Line Necessity Reviewed) Acharya: OG: Nutrition: PO Analgesia: Anxiety/ delirium VTE Prophylaxis: L 40 q12 Stress Ulcer Prophylaxis: - Glycemic Control: Plans in collaboration with bedside consultants and IM MDs. Discussed with RN to reach out if any questions or concerns A total of 32 minutes of critical care time was devoted to this patient today, required to treat and/or prevent further deterioration of critical care condition ( as above) . GLORIA MORGAN MD Jun 09, 2021 10:42
--- NOTE | 2021-06-09 11:22 | Progress Note ---
Subjective Subjective Date Seen by Provider: Jun 09, 2021 Time Seen by Provider: 10:10 Patient reports feeling well this morning. He is not experiencing any shortness of breath. His cough has improved from yesterday. Denies any nausea/vomiting, sweats/chills, chest pain or palpitations. He is eating and drinking without issue. Review of Systems General: No Chills, No Night Sweats HEENT: No Visual Changes Pulmonary: No Dyspnea; Cough (productive, improving) Cardiovascular: No: Chest Pain Gastrointestinal: No: Nausea, Vomiting, Abdominal Pain Objective Exam Vital Signs Vital Signs Date Time Temp Pulse Resp B/P (MAP) Pulse Ox O2 Delivery O2 Flow Rate FiO2 06/09/21 10:15 Vapotherm 40.00 100.00 06/09/21 10:10 96 Vapotherm 40.00 100 06/09/21 09:40 High Flow N/C 15.00 06/09/21 08:00 NIV Bilevel 80 06/09/21 07:56 36.1 06/09/21 07:49 NIV Bilevel 90.00 06/09/21 07:39 87 16 100 100.00 06/09/21 07:00 98 06/09/21 06:00 96 19 125/92 (103) NIV Bilevel 100.00 06/09/21 05:15 85 19 102/78 (86) NIV Bilevel 100.00 06/09/21 04:00 NIV Bilevel 100 06/09/21 04:00 35.8 06/09/21 04:00 87 20 97/75 (82) 99 NIV Bilevel 100.00 06/09/21 03:00 86 20 113/91 (98) 98 NIV Bilevel 100.00 06/09/21 02:06 77 20 98 100.00 06/09/21 02:00 94 17 100/68 (79) 95 NIV Bilevel 100.00 06/09/21 01:00 74 19 100/56 (71) 90 NIV Bilevel 100.00 06/09/21 01:00 74 06/09/21 00:15 75 19 104/65 (78) 91 NIV Bilevel 100.00 06/09/21 00:00 36.0 06/08/21 23:59 NIV Bilevel 90 06/08/21 23:10 NIV Bilevel 100.00 06/08/21 23:00 78 19 122/89 (100) 96 NIV Bilevel 90.00 06/08/21 22:26 79 19 60 100.00 06/08/21 22:15 90 16 92/69 (77) 70 NIV Bilevel 90.00 06/08/21 21:00 89 20 106/75 (85) 91 NIV Bilevel 90.00 06/08/21 20:00 81 20 107/82 (90) 98 NIV Bilevel 90.00 06/08/21 20:00 NIV Bilevel 90.00 06/08/21 20:00 NIV Bilevel 90 06/08/21 19:43 36.2 06/08/21 19:05 97 1 99 100.00 06/08/21 19:00 93 06/08/21 19:00 93 20 112/73 (86) 99 NIV Bilevel 100.00 06/08/21 18:39 NIV Bilevel 100.00 06/08/21 18:34 NIV Bilevel 40.00 06/08/21 18:00 91 17 120/74 (89) High Flow N/C 6.00 06/08/21 17:39 High Flow N/C 6.00 06/08/21 17:00 96 12 156/126 (136) 94 NIV Bilevel 30.00 06/08/21 16:44 36.6 06/08/21 16:10 95 NIV Bilevel 30 06/08/21 16:00 90 85/49 (61) 91 NIV Bilevel 30.00 06/08/21 15:42 93 High Flow N/C 6.00 06/08/21 15:00 90 120/73 (89) 93 NIV Bilevel 30.00 06/08/21 14:09 NIV Bilevel 30.00 06/08/21 14:00 81 97/68 (78) 88 High Flow N/C 6.00 06/08/21 13:20 High Flow N/C 6.00 06/08/21 13:11 36.0 06/08/21 13:00 94 25 132/73 (92) 96 NIV Bilevel 30.00 06/08/21 12:46 95 NIV Bilevel 30 06/08/21 12:37 95 06/08/21 12:00 88 17 153/93 (113) 88 NIV Bilevel 30.00 I & O 06/09/21 07:00 Intake Total 2260 ml Output Total 2600 ml Balance -340 ml General Appearance: No Apparent Distress, Obese HEENT: PERRL/EOMI, Other (wearing vapotherm) Neck: Normal Inspection, Supple Respiratory: No Respiratory Distress, Decreased Breath Sounds Cardiovascular: Irregularly Irregular, Tachycardia Gastrointestinal: Normal Bowel Sounds, Non Tender, Soft Extremity: Non Tender, Pedal Edema, Other (Chronic venous stasis dermatitis bilateral LE) Neurologic/Psychiatric: Alert, Oriented x3 Skin: Normal Color, Warm/Dry Results Lab Laboratory Tests 06/09/21 04:27: White Blood Count 10.9, Red Blood Count 4.44, Hemoglobin 11.1L, Hematocrit 39L, Mean Corpuscular Volume 89, Mean Corpuscular Hemoglobin 25, Mean Corpuscular Hemoglobin Concent 28L, Red Cell Distribution Width 20.4H, Platelet Count 232, Mean Platelet Volume 10.0, Immature Granulocyte % (Auto) 0, Neutrophils (%) (Auto) 73, Lymphocytes (%) (Auto) 11L, Monocytes (%) (Auto) 15H, Eosinophils (%) (Auto) 0, Basophils (%) (Auto) 0, Neutrophils # (Auto) 7.9H, Lymphocytes # (Auto) 1.2, Monocytes # (Auto) 1.7H, Eosinophils # (Auto) 0.0, Basophils # (Auto) 0.0, Immature Granulocyte # (Auto) 0.0, Sodium Level 136, Potassium Level 4.8, Chloride Level 94L, Carbon Dioxide Level 33H, Anion Gap 9, Blood Urea Nitrogen 28H, Creatinine 1.47H, Estimat Glomerular Filtration Rate 49, BUN/Creatinine Ratio 19, Glucose Level 102, Calcium Level 8.5, Magnesium Level 1.9 Assessment/Plan Assessment/Plan Assessment and Plan Acute on chronic congestive heart failure Acute hypercapnic respiratory failure Cardiology consulted Started on Enalapril and Metoprolol Echo yesterday revealed EF 45-50%, moderate tricuspid regurg IV Lasix held due to JESSICA Continue Xarelto TeleICU following Paroxysmal atrial fibrillation with rapid ventricular response Diltiazem Metoprolol Xarelto JESSICA Creatinine up to 1.47 from 0.91. Holding Lasix for now, will continue to monitor Coronary artery disease Hypertension No acute needs Morbid obesity Clinically significant, no acute management needs Tobacco abuse Refused nicotine patch Leukocytosis, resolved Hyperkalemia, resolved Supervisory-Addendum Brief Verification & Attestation Participated in pt care: history, MDM, physical Personally performed: exam, history, MDM, supervision of care Care discussed with: Medical Student Procedures: n/a Results interpretation: Verified all documentation A medical student performed and documented this service in my presence. I reviewed and verified all information documented by the medical student and made modifications to such information, when appropriate. I personally performed the physical exam and medical decision making. ANTONIA CHEEMA Jun 09, 2021 11:22 JUAN MCKEON MD Jun 09, 2021 18:43
--- NOTE | 2021-06-09 14:07 | Progress Note - Cardiology ---
Cardiology SOAP Progress Note Subjective: Does not report cp Repots malaise and weakness Shortness of breath is better Gen swelling is present Denies n/v/d Objective: I&O/Vital Signs 06/09/21 06/09/21 06/09/21 06/09/21 03:00 04:00 04:00 04:00 Temp 35.8 Pulse 86 87 Resp 20 20 B/P (MAP) 113/91 (98) 97/75 (82) Pulse Ox 98 99 O2 Delivery NIV Bilevel NIV Bilevel NIV Bilevel O2 Flow Rate 100.00 100.00 FiO2 100 06/09/21 06/09/21 06/09/21 06/09/21 05:15 06:00 07:00 07:00 Pulse 85 96 98 93 Resp 19 19 18 B/P (MAP) 102/78 (86) 125/92 (103) 100/71 (81) Pulse Ox 100 O2 Delivery NIV Bilevel NIV Bilevel NIV Bilevel O2 Flow Rate 100.00 100.00 100.00 06/09/21 06/09/21 06/09/21 06/09/21 07:39 07:49 07:56 08:00 Temp 36.1 Pulse 87 88 Resp 16 16 B/P (MAP) 105/69 (81) Pulse Ox 100 100 O2 Delivery NIV Bilevel NIV Bilevel O2 Flow Rate 100.00 90.00 90.00 06/09/21 06/09/21 06/09/21 06/09/21 08:00 09:00 09:40 10:00 Pulse 102 107 Resp 19 17 B/P (MAP) 127/84 (98) 106/62 (77) Pulse Ox 93 99 O2 Delivery NIV Bilevel NIV Bilevel High Flow N/C High Flow N/C O2 Flow Rate 90.00 15.00 15.00 FiO2 80 06/09/21 06/09/21 06/09/21 06/09/21 10:10 10:15 11:00 11:18 Pulse 102 Resp 19 B/P (MAP) 95/65 (75) Pulse Ox 96 97 O2 Delivery Vapotherm Vapotherm Vapotherm Vapotherm O2 Flow Rate 40.00 40.00 40.00 25.00 100.00 100.00 FiO2 100 90 06/09/21 06/09/21 06/09/21 12:00 12:00 12:49 Temp 36.4 Pulse 113 Resp 18 B/P (MAP) 116/82 (93) O2 Delivery Vapotherm Vapotherm O2 Flow Rate 40.00 30.00 100.00 50.00 06/08/21 23:59 Intake Total 1400 ml Output Total 825 ml Balance 575 ml Constitutional: other (more alert today, but responses to questions are very brief and he drifts back to sleep very quickly) Respiratory: No accessory muscle use; other (fair, bilateral air entry; coarse basal crackles) Cardiovascular: irregularly irregular, S1 and S2, systolic murmur (soft SAUL at card base) Gastrointestional: No tender; soft; No guarding, No rebound; audible bowel sounds Extremities: No clubbing, No cyanosis; significant edema (mod bilat LE swelling; improved; redness and keratosis of overlying leg skin) Neurologic/Psychiatric: other (not able to cooperate with a neuro exam) Skin: warm/dry, other (see under extremities exam) Results/Procedures: Labs Laboratory Tests 06/09/21 04:27: White Blood Count 10.9, Red Blood Count 4.44, Hemoglobin 11.1L, Hematocrit 39L, Mean Corpuscular Volume 89, Mean Corpuscular Hemoglobin 25, Mean Corpuscular Hemoglobin Concent 28L, Red Cell Distribution Width 20.4H, Platelet Count 232, Mean Platelet Volume 10.0, Immature Granulocyte % (Auto) 0, Neutrophils (%) (Auto) 73, Lymphocytes (%) (Auto) 11L, Monocytes (%) (Auto) 15H, Eosinophils (%) (Auto) 0, Basophils (%) (Auto) 0, Neutrophils # (Auto) 7.9H, Lymphocytes # (Auto) 1.2, Monocytes # (Auto) 1.7H, Eosinophils # (Auto) 0.0, Basophils # (Auto) 0.0, Immature Granulocyte # (Auto) 0.0, Sodium Level 136, Potassium Level 4.8, Chloride Level 94L, Carbon Dioxide Level 33H, Anion Gap 9, Blood Urea Nitrogen 28H, Creatinine 1.47H, Estimat Glomerular Filtration Rate 49, BUN/Creatinine Ratio 19, Glucose Level 102, Calcium Level 8.5, Magnesium Level 1.9 Laboratory Tests 06/07/21 19:12 06/08/21 04:30 06/09/21 04:27 A/P: Assessment: Ac systolic CHF of undetermined etiology - Echo on 06/08/21: Mild to mod cardiomegaly, LVEF 45-50%. AoV sclerosis w/o stenosis. Mod TR. PASP 35 - 40 mmHg A-fib - undetermined length of time - first seen on EKG on 06-07-21 Hypersomnolence and impaired responsiveness of undetermined etiology - somewhat improved this morning Hyperkalemia - resolved DM II Suspected SYEDA Plan: * Treat CHF with diuretics as needed and as tolerated - diuretics on hold at this time d/t worsening renal function likely d/t aggressive diuretics * A-fib of undetermined length of time - Cardizem gtt for rate control - change to oral when more alert * Anticoagulation with Lovenox for now - change to oral when more alert * Add iv bb and MIMI-inhib, change to oral when feasible * Monitor labs BARBARA MELGAR MD FACP FAC CCDS Jun 09, 2021 14:07
[2021-06-09] MEDS: dilTIAZem DRIP PRE-MIX 125 ML IV SCH (14:34)
[2021-06-09] MEDS ORDERED: DexMEDEtomidine 250 ML DRIP 250 ML IV SCH (17:45)
[2021-06-09] MEDS: RIVAROXABAN 20 MG TABLET (XARELTO) PO SCH (17:45)
[2021-06-09] MEDS ORDERED: DexMEDEtomidine 250 ML DRIP 250 ML IV ONE (18:02)
[2021-06-10] VITALS (26 sets, daily range): BP systolic 87–151; BP diastolic 63–121
[2021-06-10] MEDS: meTOprolol 5 MG/5 ML (LOPRESSOR) VIAL IV SCH ×2 (00:42→05:12)
[2021-06-10] MEDS: RT-ALBUTEROL/IPRATROPIUM 3 ML (DUONEB) VIAL INH SCH ×5 (02:42→20:17)
[2021-06-10 05:03] LABS: BASOPHILS % (AUTO) 0 % (0-10); EOSINOPHILS % (AUTO) 0 % (0-10); HEMATOCRIT 39 % (40-54); HEMOGLOBIN 11.3 g/dL (13.3-17.7); LYMPHOCYTES # (AUTO) 1.1 10^3/uL (1.0-4.0); LYMPHOCYTES % (AUTO) 13 % (12-44); MEAN CORPUSCULAR HEMOGLOBIN 26 pg (25-34); MEAN CORPUSCULAR HGB CONC 29 g/dL (32-36); MEAN CORPUSCULAR VOLUME 88 fL (80-99); MEAN PLATELET VOLUME 9.5 fL (9.0-12.2); MONOCYTES # (AUTO) 1.1 10^3/uL (0.0-1.0); MONOCYTES % (AUTO) 13 % (0-12); NEUTROPHILS # (AUTO) 6.7 10^3/uL (1.8-7.8); NEUTROPHILS % (AUTO) 74 % (42-75); PLATELET COUNT 192 10^3/uL (130-400)
[2021-06-10 05:27] LABS: POTASSIUM 4.6 MMOL/L (3.6-5.0)
[2021-06-10 05:28] LABS: CALCIUM 8.8 MG/DL (8.5-10.1)
[2021-06-10 05:32] LABS: CREATININE SERUM 0.85 MG/DL (0.60-1.30); PHOSPHORUS 2.6 MG/DL (2.3-4.7)
[2021-06-10] MEDS: MAGNESIUM 1 GM/100 ML IVPB 100 ML IV SCH (05:52)
[2021-06-10] MEDS: POTASSIUM CL 10MEQ/50ML IVPB 50 ML IV SCH (05:52)
[2021-06-10] MEDS: KCL 20 MEQ TAB (K-DUR) PO SCH (05:53)
--- NOTE | 2021-06-10 07:43 | Diagnostic Imaging Report ---
Indication: Hypoxia Portable chest shows cardiomegaly with no failure. The lungs are clear. There is no effusion or pneumothorax. IMPRESSION: Cardiomegaly. There is no change from 06/08/2021. Dictated by: Dictated on workstation # [id number]
[2021-06-10] MEDS: ENALAPRILAT 2.5 MG/2 ML (VASOTEC) VIAL IV SCH (08:33)
--- NOTE | 2021-06-10 08:53 | Progress Note - Cardiology ---
Cardiology SOAP Progress Note Subjective: Denies any c/o CP or palpitations States he does not feels SOB, but has Bi-pap in place Objective: I&O/Vital Signs 06/10/21 06/10/21 06/10/21 06/10/21 05:00 06:00 07:00 07:00 Pulse 125 105 112 112 Resp 11 18 26 B/P (MAP) 105/63 (77) Pulse Ox 98 96 O2 Delivery NIV Bilevel NIV Bilevel NIV Bilevel O2 Flow Rate 60.00 60.00 60.00 06/10/21 06/10/21 06/10/21 06/10/21 07:25 07:40 08:00 08:00 Temp 36.4 Pulse 102 115 Resp 16 24 B/P (MAP) 126/95 (105) Pulse Ox 100 O2 Delivery NIV Bilevel NIV Bilevel O2 Flow Rate 50.00 60.00 FiO2 60 06/10/21 06/10/21 06/10/21 06/10/21 09:00 10:00 10:34 12:00 Pulse 113 110 117 115 Resp 14 10 22 35 B/P (MAP) 122/82 (95) 110/83 (92) 129/88 (102) Pulse Ox 99 O2 Delivery NIV Bilevel NIV Bilevel NIV Bilevel O2 Flow Rate 60.00 60.00 40.00 30.00 06/10/21 06/10/21 06/10/21 06/10/21 12:00 12:00 13:00 13:00 Temp 36.4 Pulse 110 110 Resp 13 B/P (MAP) 128/112 (117) O2 Delivery NIV Bilevel NIV Bilevel O2 Flow Rate 30.00 FiO2 30 06/10/21 06/10/21 06/10/21 06/10/21 14:00 14:34 14:54 15:00 Temp 36.4 Pulse 108 112 112 111 Resp 11 23 10 B/P (MAP) 98/84 (89) 111/87 (95) Pulse Ox 95 95 O2 Delivery NIV Bilevel NIV Bilevel O2 Flow Rate 30.00 30.00 30.00 FiO2 40 06/10/21 00:00 Intake Total 250 ml Output Total 1200 ml Balance -950 ml Constitutional: other (more alert today, but responses to questions are very brief and he drifts back to sleep very quickly) Respiratory: No accessory muscle use; other (fair, bilateral air entry; coarse basal crackles) Cardiovascular: irregularly irregular, S1 and S2, systolic murmur (soft SAUL at card base) Gastrointestional: No tender; soft; No guarding, No rebound; audible bowel sounds Extremities: No clubbing, No cyanosis; significant edema (mod bilat LE swelling; improved; redness and keratosis of overlying leg skin) Neurologic/Psychiatric: grossly intact (moves all extremities) Skin: warm/dry, other (see under extremities exam) Results/Procedures: Labs Laboratory Tests 06/10/21 04:35: White Blood Count 9.0, Red Blood Count 4.44, Hemoglobin 11.3L, Hematocrit 39L, Mean Corpuscular Volume 88, Mean Corpuscular Hemoglobin 26, Mean Corpuscular Hemoglobin Concent 29L, Red Cell Distribution Width 20.1H, Platelet Count 192, Mean Platelet Volume 9.5, Immature Granulocyte % (Auto) 0, Neutrophils (%) (Auto) 74, Lymphocytes (%) (Auto) 13, Monocytes (%) (Auto) 13H, Eosinophils (%) (Auto) 0, Basophils (%) (Auto) 0, Neutrophils # (Auto) 6.7, Lymphocytes # (Auto) 1.1, Monocytes # (Auto) 1.1H, Eosinophils # (Auto) 0.0, Basophils # (Auto) 0.0, Immature Granulocyte # (Auto) 0.0, Sodium Level 137, Potassium Level 4.6, Chlor vin Level 95L, Carbon Dioxide Level 33H, Anion Gap 9, Blood Urea Nitrogen 21H, Creatinine 0.85, Estimat Glomerular Filtration Rate 92, BUN/Creatinine Ratio 25, Glucose Level 94, Calcium Level 8.8, Phosphorus Level 2.6, Magnesium Level 2.0 06/10/21 10:35: Blood Gas Puncture Site R WRIST, Blood Gas Patient Temperature 36, Arterial Blood pH 7.36L, Arterial Blood Partial Pressure CO2 71*H, Arterial Blood Partial Pressure O2 118H, Arterial Blood HCO3 40H, Arterial Blood Total CO2 41.9*H, Arterial Blood Oxygen Saturation 99, Arterial Blood Base Excess 13.5H, Justin Rowan t YES-POS, Blood Gas Ventilator Setting NO, Blood Gas Inspired Oxygen 60% A/P: Assessment: Ac systolic CHF of undetermined etiology - Echo on 06/08/21: Mild to mod cardiomegaly, LVEF 45-50%. AoV sclerosis w/o stenosis. Mod TR. PASP 35 - 40 mmHg A-fib - undetermined length of time - first seen on EKG on 06-07-21 Hypersomnolence and impaired responsiveness of undetermined etiology - somewhat improved this morning Hyperkalemia - resolved DM II Suspected SYEDA Plan: * Treat CHF with diuretics as needed and as tolerated - change to oral and resume * A-fib of undetermined length of time - stop Cardizem gtt and start oral * Continue oral OAC for stroke prophylaxis * Start oral BB and MIMI * Monitor labs ELIZABETH DIAMOND Jun 10, 2021 08:53
[2021-06-10] MEDS ORDERED: FUROSEMIDE 40 MG/4 ML INJ (LASIX) IVP ONE (09:00)
[2021-06-10] MEDS: ENALAPRIL 2.5 MG (VASOTEC) TAB PO SCH ×2 (09:47→20:51)
[2021-06-10] MEDS: meTOproloL SUCCINATE 50 MG (TOPROL XL) TAB PO SCH ×2 (09:59→20:51)
--- NOTE | 2021-06-10 10:33 | Tele-ICU Progress Note ---
Subjective Date Seen by a Provider: Jun 10, 2021 Time Seen by a Provider: 09:32 Sepsis Event Evaluation Height, Weight, BMI Height: '" Weight: lbs. oz. kg; 49.52 BMI Method: Exam Exam Patient acknowledged, consented, and participated in this virtual visit which was conducted using real time audio/video Vital Signs Date Time Temp Pulse Resp B/P (MAP) Pulse Ox O2 Delivery O2 Flow Rate FiO2 06/10/21 08:00 115 24 126/95 (105) NIV Bilevel 60.00 06/10/21 08:00 NIV Bilevel 60 06/10/21 07:40 36.4 06/10/21 07:25 102 16 100 50.00 06/10/21 07:00 112 26 NIV Bilevel 60.00 06/10/21 07:00 112 06/10/21 06:00 105 18 96 NIV Bilevel 60.00 06/10/21 05:00 125 11 105/63 (77) 98 NIV Bilevel 60.00 06/10/21 04:26 36.4 NIV Bilevel 60.00 06/10/21 04:00 129 115/82 (93) 99 NIV Bilevel 70.00 06/10/21 04:00 NIV Bilevel 60 06/10/21 03:00 129 121/98 (106) 98 NIV Bilevel 70.00 06/10/21 02:42 129 17 100 50.00 06/10/21 02:00 113 16 87/75 (79) 89 NIV Bilevel 70.00 06/10/21 01:00 118 18 143/89 (107) 100 NIV Bilevel 70.00 06/10/21 01:00 116 06/10/21 00:00 125 14 100/83 (89) 97 NIV Bilevel 70.00 06/10/21 00:00 NIV Bilevel 80 06/09/21 23:00 107 19 109/80 (90) 97 NIV Bilevel 70.00 06/09/21 22:00 116 15 119/78 (92) 100 NIV Bilevel 70.00 06/09/21 21:33 117 19 96 60.00 06/09/21 21:00 122 9 119/68 (85) 100 NIV Bilevel 70.00 06/09/21 20:00 126 19 129/86 (100) 100 NIV Bilevel 70.00 06/09/21 20:00 NIV Bilevel 80 06/09/21 19:55 36.5 06/09/21 19:00 113 06/09/21 19:00 104 15 104/69 (81) 100 NIV Bilevel 70.00 06/09/21 18:44 115 18 100 70.00 06/09/21 18:00 121 25 123/81 (95) 100 NIV Bilevel 70.00 06/09/21 17:00 123 11 101/67 (78) 92 NIV Bilevel 70.00 06/09/21 16:00 117 16 121/91 (101) 100 NIV Bilevel 70.00 06/09/21 16:00 NIV Bilevel 80 06/09/21 15:00 118 18 141/119 (126) 98 NIV Bilevel 70.00 06/09/21 14:13 NIV Bilevel 70.00 06/09/21 14:00 99 11 132/116 (121) 100 NIV Bilevel 90.00 06/09/21 14:00 107 18 100 90.00 06/09/21 13:45 NIV Bilevel 90.00 06/09/21 13:00 117 14 122/83 (96) 91 Vapotherm 30.00 50.00 06/09/21 13:00 112 06/09/21 12:49 Vapotherm 30.00 50.00 06/09/21 12:00 113 18 116/82 (93) Vapotherm 40.00 100.00 06/09/21 12:00 36.4 06/09/21 11:18 Vapotherm 25.00 90 06/09/21 11:00 102 19 95/65 (75) 97 Vapotherm 40.00 100.00 I & O 06/10/21 07:00 Intake Total 1050 ml Output Total 2450 ml Balance -1400 ml Height & Weight Height: '" Weight: lbs. oz. kg; 49.52 BMI Method: General Appearance: No Apparent Distress, Obese HEENT: PERRL/EOMI, Other (wearing vapotherm) Neck: Normal Inspection, Supple Respiratory: No Respiratory Distress, Decreased Breath Sounds Cardiovascular: Irregularly Irregular, Tachycardia Extremity: Non Tender, Pedal Edema, Other (Chronic venous stasis dermatitis bilateral LE) Neurologic/Psychiatric: Alert, Oriented x3 Skin: Normal Color, Warm/Dry Results Lab Laboratory Tests 06/09/21 04:27 06/10/21 04:35 Assessment/Plan Assessment/Plan (Tele-ICU Physician , Progress Note ) Available chart/ vitals / labs / Images reviewed Video assessment done using teleICU camera, rest of exam as per RN Discussed with RN , EXAM PER RN Events overnight : BIPAP Afebrile I/O = neg 300 Drips: cardizem gtt off Pressors: , hemodynamically stable Consultants: laura Hospital course: 06/07 - ARF , afib RVR 06/08 - NC 6 l 06/09- BIPAP , VAPOTHERM , off cardizemn gtt, JESSICA ?1.4 - lasix stopped 06/10 - BIPAP 15/08 [id number], tv 350-400, MV 6-9L , 50% A/P Acute resp failure , CHF - on BIPAP 15/08 rr22-30, tv 350-400, MV 6-9L , 50% VAPOTHERM to try today , encourage IS and BIPAP at night ( low PCT - , not on ABX ) - TO CONT DIURESIS PER CARDS Encephalopathy - improving , repeat abg attempted - PATIENT IS REFUSING - follow closely CHF - as per cardiology - lasix on hold with JESSICA - Cr improved - diuresis as per cardiology - Echo on 06/08/21: Mild to mod cardiomegaly, LVEF 45-50%. AoV sclerosis w/o stenosis. Mod TR. PASP 35 - 40 mmHg PAF , RVR - rate controlled, OFF cardizen gtt - AC - xarelto JESSICA - possible due to agressive diuresis - improved off lasix Reportedly SYEDA - ? on CPAP Hyperkalemia - was tx - WNL now Lines : priph (Central Line Necessity Reviewed) Acharya: OG: Nutrition: PO Analgesia: Anxiety/ delirium VTE Prophylaxis: L 40 q12 Stress Ulcer Prophylaxis: - Glycemic Control: Plans in collaboration with bedside consultants and IM MDs. Discussed with RN to reach out if any questions or concerns A total of 32 minutes of critical care time was devoted to this patient today, required to treat and/or prevent further deterioration of critical care condition ( as above) . GLORIA MORGAN MD Jun 10, 2021 10:33
[2021-06-10 10:41] LABS: ABG BASE EXCESS 13.5 MMOL/L (-2.5-2.5); ABG OXYGEN SATURATION 99 % (94-100); ABG PH 7.36 (7.37-7.43); ABG PO2 118 MMHG (79-93)
[2021-06-10 10:44] LABS: ABG PCO2 71 MMHG (35-45); ABG TCO2 41.9 MMOL/L (21.0-31.0); ALLENS TEST YES-POS; INSPIRED O2 60%; PATIENT TEMP 36; VENTILATOR NO
--- NOTE | 2021-06-10 13:11 | Progress Note ---
Subjective Subjective Date Seen by Provider: Jun 10, 2021 Time Seen by Provider: 08:30 Patient seemed to be mildly uncomfortable in bed this morning. He says that the oxygen mask is causing his discomfort. Denies any nausea/vomiting, sweats/chills, chest pain or palpitations. He did not sleep well last night. Review of Systems General: No Chills, No Night Sweats Pulmonary: No Dyspnea Cardiovascular: No: Chest Pain Gastrointestinal: No: Nausea, Vomiting Objective Exam Vital Signs Vital Signs Date Time Temp Pulse Resp B/P (MAP) Pulse Ox O2 Delivery O2 Flow Rate FiO2 06/10/21 12:00 NIV Bilevel 30 06/10/21 10:34 117 22 99 40.00 06/10/21 10:00 110 10 110/83 (92) NIV Bilevel 60.00 06/10/21 09:00 113 14 122/82 (95) NIV Bilevel 60.00 06/10/21 08:00 115 24 126/95 (105) NIV Bilevel 60.00 06/10/21 08:00 NIV Bilevel 60 06/10/21 07:40 36.4 06/10/21 07:25 102 16 100 50.00 06/10/21 07:00 112 26 NIV Bilevel 60.00 06/10/21 07:00 112 06/10/21 06:00 105 18 96 NIV Bilevel 60.00 06/10/21 05:00 125 11 105/63 (77) 98 NIV Bilevel 60.00 06/10/21 04:26 36.4 NIV Bilevel 60.00 06/10/21 04:00 129 115/82 (93) 99 NIV Bilevel 70.00 06/10/21 04:00 NIV Bilevel 60 06/10/21 03:00 129 121/98 (106) 98 NIV Bilevel 70.00 06/10/21 02:42 129 17 100 50.00 06/10/21 02:00 113 16 87/75 (79) 89 NIV Bilevel 70.00 06/10/21 01:00 118 18 143/89 (107) 100 NIV Bilevel 70.00 06/10/21 01:00 116 06/10/21 00:00 125 14 100/83 (89) 97 NIV Bilevel 70.00 06/10/21 00:00 NIV Bilevel 80 06/09/21 23:00 107 19 109/80 (90) 97 NIV Bilevel 70.00 06/09/21 22:00 116 15 119/78 (92) 100 NIV Bilevel 70.00 06/09/21 21:33 117 19 96 60.00 06/09/21 21:00 122 9 119/68 (85) 100 NIV Bilevel 70.00 06/09/21 20:00 126 19 129/86 (100) 100 NIV Bilevel 70.00 06/09/21 20:00 NIV Bilevel 80 06/09/21 19:55 36.5 06/09/21 19:00 113 06/09/21 19:00 104 15 104/69 (81) 100 NIV Bilevel 70.00 06/09/21 18:44 115 18 100 70.00 06/09/21 18:00 121 25 123/81 (95) 100 NIV Bilevel 70.00 06/09/21 17:00 123 11 101/67 (78) 92 NIV Bilevel 70.00 06/09/21 16:00 117 16 121/91 (101) 100 NIV Bilevel 70.00 06/09/21 16:00 NIV Bilevel 80 06/09/21 15:00 118 18 141/119 (126) 98 NIV Bilevel 70.00 06/09/21 14:13 NIV Bilevel 70.00 06/09/21 14:00 99 11 132/116 (121) 100 NIV Bilevel 90.00 06/09/21 14:00 107 18 100 90.00 06/09/21 13:45 NIV Bilevel 90.00 I & O 06/10/21 07:00 Intake Total 1050 ml Output Total 2450 ml Balance -1400 ml General Appearance: No Apparent Distress, Obese HEENT: PERRL/EOMI, Other (wearing BiPAP) Neck: Normal Inspection, Supple Respiratory: No Respiratory Distress, Decreased Breath Sounds, Other (wearing BiPAP) Cardiovascular: Irregularly Irregular, Tachycardia Gastrointestinal: Normal Bowel Sounds, Non Tender, Soft Genital/Rectal: Other (scrotum swollen) Extremity: Non Tender, Pedal Edema, Other (Chronic venous stasis dermatitis bilateral LE) Neurologic/Psychiatric: Alert, Oriented x3 Skin: Normal Color, Warm/Dry Results Lab Laboratory Tests 06/10/21 04:35: White Blood Count 9.0, Red Blood Count 4.44, Hemoglobin 11.3L, Hematocrit 39L, Mean Corpuscular Volume 88, Mean Corpuscular Hemoglobin 26, Mean Corpuscular Hemoglobin Concent 29L, Red Cell Distribution Width 20.1H, Platelet Count 192, Mean Platelet Volume 9.5, Immature Granulocyte % (Auto) 0, Neutrophils (%) (Auto) 74, Lymphocytes (%) (Auto) 13, Monocytes (%) (Auto) 13H, Eosinophils (%) (Auto) 0, Basophils (%) (Auto) 0, Neutrophils # (Auto) 6.7, Lymphocytes # (Auto) 1.1, Monocytes # (Auto) 1.1H, Eosinophils # (Auto) 0.0, Basophils # (Auto) 0.0, Immature Granulocyte # (Auto) 0.0, Sodium Level 137, Potassium Level 4.6, Chloride Level 95L, Carbon Dioxide Level 33H, Anion Gap 9, Blood Urea Nitrogen 21H, Creatinine 0.85, Estimat Glomerular Filtration Rate 92, BUN/Creatinine Ratio 25, Glucose Level 94, Calcium Level 8.8, Phosphorus Level 2.6, Magnesium Level 2.0 06/10/21 10:35: Blood Gas Puncture Site R WRIST, Blood Gas Patient Temperature 36, Arterial Blood pH 7.36L, Arterial Blood Partial Pressure CO2 71*H, Arterial Blood Partial Pressure O2 118H, Arterial Blood HCO3 40H, Arterial Blood Total CO2 41.9*H, Arterial Blood Oxygen Saturation 99, Arterial Blood Base Excess 13.5H, Justin Test YES-POS, Blood Gas Ventilator Setting NO, Blood Gas Inspired Oxygen 60% Assessment/Plan Assessment/Plan Assessment and Plan Acute on chronic diastolic congestive heart failure Acute hypoxic and hypercapnic respiratory failure Cardiology is on board Echo revealed EF 45-50%, moderate tricuspid regurg Transitioned to oral Enalapril and Metoprolol IV Lasix restarted, kidney numbers back in normal range ABG today- pCO2 increased to 71 Continue BiPAP TeleICU following Paroxysmal atrial fibrillation with rapid ventricular response Starting oral Diltiazem and Metoprolol Continue Xarelto JESSICA Creatinine back down to 0.85 Coronary artery disease Hypertension No acute needs Morbid obesity Clinically significant, no acute management needs Tobacco abuse Refused nicotine patch Leukocytosis, resolved Hyperkalemia, resolved Problems: (1) Acute respiratory failure with hypoxia and hypercapnia (2) BiPAP (biphasic positive airway pressure) dependence (3) JESSICA (acute kidney injury) (4) Paroxysmal atrial fibrillation with rapid ventricular response (5) Acute on chronic congestive heart failure Qualifiers: Qualified Codes: I50.33 - Acute on chronic diastolic (congestive) heart failure (6) Morbid obesity Supervisory-Addendum Brief Verification & Attestation Participated in pt care: history, MDM, physical Personally performed: exam, history, MDM, supervision of care Care discussed with: Medical Student Procedures: n/a Results interpretation: Verified all documentation A medical student performed and documented this service in my presence. I reviewed and verified all information documented by the medical student and made modifications to such information, when appropriate. I personally performed the physical exam and medical decision making. ANTONIA CHEEMA Jun 10, 2021 13:11 JUAN MCKEON MD Jun 10, 2021 16:53
--- NOTE | 2021-06-10 13:18 | Progress Note - Cardiology ---
Cardiology SOAP Progress Note Subjective: Difficult to communicate with. Responses unreliable. Does not report cp or palp or syncope. Denies shortness of breath Objective: I&O/Vital Signs 06/10/21 06/10/21 06/10/21 06/10/21 02:00 02:42 03:00 04:00 Pulse 113 129 129 Resp 16 17 B/P (MAP) 87/75 (79) 121/98 (106) Pulse Ox 89 100 98 O2 Delivery NIV Bilevel NIV Bilevel NIV Bilevel O2 Flow Rate 70.00 50.00 70.00 FiO2 60 06/10/21 06/10/21 06/10/21 06/10/21 04:00 04:26 05:00 06:00 Temp 36.4 Pulse 129 125 105 Resp 11 18 B/P (MAP) 115/82 (93) 105/63 (77) Pulse Ox 99 98 96 O2 Delivery NIV Bilevel NIV Bilevel NIV Bilevel NIV Bilevel O2 Flow Rate 70.00 60.00 60.00 60.00 06/10/21 06/10/21 06/10/21 06/10/21 07:00 07:00 07:25 07:40 Temp 36.4 Pulse 112 112 102 Resp 26 16 B/P (MAP) Pulse Ox 100 O2 Delivery NIV Bilevel O2 Flow Rate 60.00 50.00 06/10/21 06/10/21 06/10/21 06/10/21 08:00 08:00 09:00 10:00 Pulse 115 113 110 Resp 24 14 10 B/P (MAP) 126/95 (105) 122/82 (95) 110/83 (92) O2 Delivery NIV Bilevel NIV Bilevel NIV Bilevel NIV Bilevel O2 Flow Rate 60.00 60.00 60.00 FiO2 60 06/10/21 06/10/21 10:34 12:00 Pulse 117 Resp 22 Pulse Ox 99 O2 Delivery NIV Bilevel O2 Flow Rate 40.00 FiO2 30 06/10/21 00:00 Intake Total 250 ml Output Total 1200 ml Balance -950 ml Constitutional: No AAO x 3; other (more alert today, but responses to questions are very brief and he drifts back to sleep very quickly) Respiratory: No accessory muscle use; other (fair, bilateral air entry; coarse basal crackles) Cardiovascular: irregularly irregular, S1 and S2, systolic murmur (soft SAUL at card base) Gastrointestional: No tender; soft; No guarding, No rebound; audible bowel sounds Extremities: No clubbing, No cyanosis; significant edema (mod bilat LE swelling ; improved; redness and keratosis of overlying leg skin) Neurologic/Psychiatric: grossly intact (moves all extremities) Skin: warm/dry, other (see under extremities exam) Results/Procedures: Labs Laboratory Tests 06/10/21 04:35: White Blood Count 9.0, Red Blood Count 4.44, Hemoglobin 11.3L, Hematocrit 39L, Mean Corpuscular Volume 88, Mean Corpuscular Hemoglobin 26, Mean Corpuscular Hemoglobin Concent 29L, Red Cell Distribution Width 20.1H, Platelet Count 192, Mean Platelet Volume 9.5, Immature Granulocyte % (Auto) 0, Neutrophils (%) (Auto) 74, Lymphocytes (%) (Auto) 13, Monocytes (%) (Auto) 13H, Eosinophils (%) (Auto) 0, Basophils (%) (Auto) 0, Neutrophils # (Auto) 6.7, Lymphocytes # (Auto) 1.1, Monocytes # (Auto) 1.1H, Eosinophils # (Auto) 0.0, Basophils # (Auto) 0.0, Immature Granulocyte # (Auto) 0.0, Sodium Level 137, Potassium Level 4.6, Chloride Level 95L, Carbon Dioxide Level 33H, Anion Gap 9, Blood Urea Nitrogen 21H, Creatinine 0.85, Estimat Glomerular Filtration Rate 92, BUN/Creatinine Ratio 25, Glucose Level 94, Calcium Level 8.8, Phosphorus Level 2.6, Magnesium Level 2.0 06/10/21 10:35: Blood Gas Puncture Site R WRIST, Blood Gas Patient Temperature 36, Arterial Blood pH 7.36L, Arterial Blood Partial Pressure CO2 71*H, Arterial Blood Partial Pressure O2 118H, Arterial Blood HCO3 40H, Arterial Blood Total CO2 41.9*H, Arterial Blood Oxygen Saturation 99, Arterial Blood Base Excess 13.5H, Justin Test YES-POS, Blood Gas Ventilator Setting NO, Blood Gas Inspired Oxygen 60% Laboratory Tests 06/09/21 04:27 06/10/21 04:35 A/P: Assessment: Ac systolic CHF of undetermined etiology - Echo on 06/08/21: Mild to mod cardiomegaly, LVEF 45-50%. AoV sclerosis w/o stenosis. Mod TR. PASP 35 - 40 mmHg A-fib - undetermined length of time - first seen on EKG on 06-07-21 Hypersomnolence and impaired responsiveness of undetermined etiology - somewhat improved this morning Hyperkalemia - resolved DM II Suspected SYEDA Plan: * Treat CHF with diuretics as needed and as tolerated - change to oral and resume * A-fib of undetermined length of time - stop Cardizem gtt and start oral * Continue oral OAC for stroke prophylaxis * Start oral BB and MIMI * Monitor labs BARBARA MELGAR MD FACP [facility] Jun 10, 2021 13:18
[2021-06-10] MEDS: NYSTATIN CREAM (MYCOSTATIN) 30 GM TUBE TP SCH (16:54)
[2021-06-10] MEDS: RIVAROXABAN 20 MG TABLET (XARELTO) PO SCH (18:02)
[2021-06-11] VITALS (24 sets, daily range): BP systolic 93–156; BP diastolic 62–144
[2021-06-11] MEDS: RT-ALBUTEROL/IPRATROPIUM 3 ML (DUONEB) VIAL INH SCH ×4 (01:49→21:14)
[2021-06-11 05:07] LABS: BASOPHILS % (AUTO) 0 % (0-10); EOSINOPHILS # (AUTO) 0.1 10^3/uL (0.0-0.3); EOSINOPHILS % (AUTO) 1 % (0-10); HEMATOCRIT 42 % (40-54); HEMOGLOBIN 12.1 g/dL (13.3-17.7); LYMPHOCYTES # (AUTO) 1.2 10^3/uL (1.0-4.0); LYMPHOCYTES % (AUTO) 12 % (12-44); MEAN CORPUSCULAR HEMOGLOBIN 25 pg (25-34); MEAN CORPUSCULAR HGB CONC 29 g/dL (32-36); MEAN CORPUSCULAR VOLUME 86 fL (80-99); MEAN PLATELET VOLUME 9.9 fL (9.0-12.2); MONOCYTES # (AUTO) 1.1 10^3/uL (0.0-1.0); MONOCYTES % (AUTO) 11 % (0-12); NEUTROPHILS # (AUTO) 7.3 10^3/uL (1.8-7.8); NEUTROPHILS % (AUTO) 75 % (42-75); PLATELET COUNT 215 10^3/uL (130-400); WHITE BLOOD COUNT 9.8 10^3/uL (4.3-11.0)
[2021-06-11 05:22] LABS: POTASSIUM 5.1 MMOL/L (3.6-5.0)
[2021-06-11 05:23] LABS: CALCIUM 9.2 MG/DL (8.5-10.1)
[2021-06-11 05:27] LABS: PHOSPHORUS 2.2 MG/DL (2.3-4.7)
[2021-06-11] MEDS: POTASSIUM CL 10MEQ/50ML IVPB 50 ML IV SCH (05:27)
[2021-06-11 05:28] LABS: CREATININE SERUM 0.77 MG/DL (0.60-1.30)
[2021-06-11] MEDS: KCL 20 MEQ TAB (K-DUR) PO SCH (05:28)
[2021-06-11 05:30] LABS: MAGNESIUM 1.9 MG/DL (1.6-2.4)
[2021-06-11] MEDS: MAGNESIUM 1 GM/100 ML IVPB 100 ML IV SCH (05:32)
[2021-06-11] MEDS ORDERED: FUROSEMIDE 40 MG/4 ML INJ (LASIX) IVP ONE (08:15)
[2021-06-11] MEDS: FUROSEMIDE 40 MG (LASIX) TAB PO SCH (08:47)
[2021-06-11] MEDS: ENALAPRIL 2.5 MG (VASOTEC) TAB PO SCH ×2 (08:53→20:12)
[2021-06-11] MEDS: NYSTATIN CREAM (MYCOSTATIN) 30 GM TUBE TP SCH ×3 (08:54→20:48)
[2021-06-11] MEDS: meTOproloL SUCCINATE 50 MG (TOPROL XL) TAB PO SCH ×2 (08:54→20:12)
--- NOTE | 2021-06-11 09:09 | Progress Note - Cardiology ---
Cardiology SOAP Progress Note Subjective: Does not answer questions in any detail Does not report cp or palp or syncope Objective: I&O/Vital Signs 06/10/21 06/10/21 06/10/21 06/11/21 22:00 23:00 23:59 00:00 Pulse 87 89 87 Resp 12 16 19 B/P (MAP) 127/112 (117) 143/113 (123) 133/105 (114) Pulse Ox 99 92 96 96 O2 Delivery NIV Bilevel NIV Bilevel NIV Bilevel NIV Bilevel O2 Flow Rate 40.00 40.00 40.00 FiO2 40 06/11/21 06/11/21 06/11/21 06/11/21 00:14 01:00 01:00 01:49 Temp 36.1 Pulse 91 96 89 Resp 12 18 B/P (MAP) 126/96 (106) Pulse Ox 98 95 O2 Delivery NIV Bilevel O2 Flow Rate 40.00 40.00 06/11/21 06/11/21 06/11/21 06/11/21 02:00 03:00 04:00 04:07 Pulse 80 94 83 Resp 20 18 16 B/P (MAP) 131/112 (118) 131/101 (111) 125/98 (107) Pulse Ox 95 93 93 97 O2 Delivery NIV Bilevel NIV Bilevel NIV Bilevel NIV Bilevel O2 Flow Rate 40.00 40.00 40.00 FiO2 40 06/11/21 06/11/21 06/11/21 06/11/21 04:07 05:00 06:00 06:46 Temp 35.9 Pulse 110 102 87 Resp 24 20 B/P (MAP) 129/111 (117) 121/98 (106) Pulse Ox 94 100 O2 Delivery NIV Bilevel NIV Bilevel O2 Flow Rate 40.00 40.00 06/11/21 06/11/21 06/11/21 06/11/21 07:00 07:35 07:51 08:00 Temp 36.2 Pulse 96 85 89 Resp 39 18 14 B/P (MAP) 98/70 (79) 97/66 (76) Pulse Ox 100 99 91 O2 Delivery NIV Bilevel NIV Bilevel O2 Flow Rate 40.00 40.00 40.00 06/11/21 08:02 Pulse Ox 95 O2 Delivery NIV Bilevel FiO2 40 06/11/21 00:00 Intake Total 400 ml Output Total 2750 ml Balance -2350 ml Constitutional: No AAO x 3; other (esponses to questions are very brief and he drifts back to sleep very quickly) Respiratory: No accessory muscle use; other (fair, bilateral air entry; coarse basal crackles) Cardiovascular: irregularly irregular, S1 and S2, systolic murmur (soft SAUL at card base) Gastrointestional: No tender; soft; No guarding, No rebound; audible bowel sounds Extremities: No clubbing, No cyanosis; significant edema (mod bilat LE swelling; improved; redness and keratosis of overlying leg skin) Neurologic/Psychiatric: grossly intact (moves all extremities) Skin: warm/dry, other (see under extremities exam) Results/Procedures: Labs Laboratory Tests 06/10/21 10:35: Blood Gas Puncture Site R WRIST, Blood Gas Patient Temperature 36, Arterial Blood pH 7.36L, Arterial Blood Partial Pressure CO2 71*H, Arterial Blood Partial Pressure O2 118H, Arterial Blood HCO3 40H, Arterial Blood Total CO2 41.9*H, Arterial Blood Oxygen Saturation 99, Arterial Blood Base Excess 13.5H, Justin T est YES-POS, Blood Gas Ventilator Setting NO, Blood Gas Inspired Oxygen 60% 06/11/21 04:40: White Blood Count 9.8, Red Blood Count 4.82, Hemoglobin 12.1L, Hematocrit 42, Mean Corpuscular Volume 86, Mean Corpuscular Hemoglobin 25, Mean Corpuscular Hemoglobin Concent 29L, Red Cell Distribution Width 20.0H, Platelet Count 215, Mean Platelet Volume 9.9, Immature Granulocyte % (Auto) 0, Neutrophils (%) (Auto) 75, Lymphocytes (%) (Auto) 12, Monocytes (%) (Auto) 11, Eosinophils (%) (Auto) 1, Basophils (%) (Auto) 0, Neutrophils # (Auto) 7.3, Lymphocytes # (Auto) 1.2, Monocytes # (Auto) 1.1H, Eosinophils # (Auto) 0.1, Basophils # (Auto) 0.0, Immature Granulocyte # (Auto) 0.0, Sodium Level 137, Potassium Level 5.1H, Chloride Level 94L, Carbon Dioxide Level 33H, Anion Gap 10, Blood Urea Nitrogen 19H, Creatinine 0.77, Estimat Glomerular Filtration Rate 103, BUN/Creatinine Ratio 25, Glucose Level 72, Calcium Level 9.2, Phosphorus Level 2.2L, Magnesium Level 1.9 Laboratory Tests 06/10/21 04:35 06/11/21 04:40 A/P: Assessment: Ac systolic CHF of undetermined etiology - Echo on 06/08/21: Mild to mod cardiomegaly, LVEF 45-50%. AoV sclerosis w/o stenosis. Mod TR. PASP 35 - 40 mmHg A-fib - undetermined length of time - first seen on EKG on 06-07-21 Hypersomnolence and impaired responsiveness of undetermined etiology - somewhat improved this morning Hyperkalemia - resolved DM II Suspected SYEDA Plan: * Treat CHF with diuretics as needed and as tolerated * Continue oral dilt and beta-nima for vent rate control * Continue oral OAC for stroke prophylaxis * Continue beta-nima and MIMI-inhib for cardiomyopathy * Monitor labs BARBARA MELGAR MD FACP [facility] Jun 11, 2021 09:09
--- NOTE | 2021-06-11 10:48 | Tele-ICU Progress Note ---
Subjective Date Seen by a Provider: Jun 11, 2021 Time Seen by a Provider: 10:47 Sepsis Event Evaluation Height, Weight, BMI Height: '" Weight: lbs. oz. kg; 49.52 BMI Method: Exam Exam Patient acknowledged, consented, and participated in this virtual visit which was conducted using real time audio/video Vital Signs Date Time Temp Pulse Resp B/P (MAP) Pulse Ox O2 Delivery O2 Flow Rate FiO2 06/11/21 10:40 97 Vapotherm 40.00 60 06/11/21 10:40 Vapotherm 40.00 60.00 06/11/21 10:00 98 13 134/100 (111) 98 NIV Bilevel 40.00 06/11/21 09:00 90 12 156/112 (127) 100 NIV Bilevel 40.00 06/11/21 08:02 95 NIV Bilevel 40 06/11/21 08:00 89 14 97/66 (76) 91 NIV Bilevel 40.00 06/11/21 07:51 85 18 99 40.00 06/11/21 07:35 36.2 06/11/21 07:00 96 39 98/70 (79) 100 NIV Bilevel 40.00 06/11/21 06:46 87 06/11/21 06:00 102 20 121/98 (106) 100 NIV Bilevel 40.00 06/11/21 05:00 110 24 129/111 (117) 94 NIV Bilevel 40.00 06/11/21 04:07 35.9 06/11/21 04:07 97 NIV Bilevel 40 06/11/21 04:00 83 16 125/98 (107) 93 NIV Bilevel 40.00 06/11/21 03:00 94 18 131/101 (111) 93 NIV Bilevel 40.00 06/11/21 02:00 80 20 131/112 (118) 95 NIV Bilevel 40.00 06/11/21 01:49 89 18 95 40.00 06/11/21 01:00 96 12 126/96 (106) 98 NIV Bilevel 40.00 06/11/21 01:00 91 06/11/21 00:14 36.1 06/11/21 00:00 87 19 133/105 (114) 96 NIV Bilevel 40.00 06/10/21 23:59 96 NIV Bilevel 40 10/13/21 23:00 89 16 143/113 (123) 92 NIV Bilevel 40.00 06/10/21 22:00 87 12 127/112 (117) 99 NIV Bilevel 40.00 06/10/21 21:00 102 14 146/100 (115) 96 NIV Bilevel 40.00 06/10/21 20:20 NIV Bilevel 40.00 06/10/21 20:19 40.00 06/10/21 20:17 90 16 100 50.00 06/10/21 20:00 96 NIV Bilevel 50 06/10/21 20:00 103 15 151/102 (118) 100 NIV Bilevel 50.00 06/10/21 20:00 36.0 06/10/21 19:01 90 16 97 50.00 06/10/21 19:00 95 19 130/101 (111) 100 NIV Bilevel 50.00 06/10/21 19:00 89 06/10/21 18:00 85 16 132/121 (125) 100 NIV Bilevel 100.00 06/10/21 17:00 98 14 114/84 (94) 96 NIV Bilevel 100.00 06/10/21 16:00 94 NIV Bilevel 30.00 06/10/21 16:00 105 16 131/101 (111) 95 NIV Bilevel 30.00 06/10/21 15:00 111 10 111/87 (95) NIV Bilevel 30.00 06/10/21 14:54 36.4 112 95 40 06/10/21 14:34 112 23 95 30.00 06/10/21 14:00 108 11 98/84 (89) NIV Bilevel 30.00 06/10/21 13:00 110 13 128/112 (117) NIV Bilevel 30.00 06/10/21 13:00 110 06/10/21 12:00 NIV Bilevel 30 06/10/21 12:00 36.4 06/10/21 12:00 115 35 129/88 (102) NIV Bilevel 30.00 I & O 06/11/21 07:00 Intake Total 620 ml Output Total 4450 ml Balance -3830 ml Height & Weight Height: '" Weight: lbs. oz. kg; 49.52 BMI Method: General Appearance: No Apparent Distress, Obese HEENT: PERRL/EOMI, Other (wearing BiPAP) Neck: Normal Inspection, Supple Respiratory: No Respiratory Distress, Decreased Breath Sounds, Other (wearing BiPAP) Cardiovascular: Irregularly Irregular, Tachycardia Extremity: Non Tender, Pedal Edema, Other (Chronic venous stasis dermatitis bilateral LE) Neurologic/Psychiatric: Alert, Oriented x3 Skin: Normal Color, Warm/Dry Results Lab Laboratory Tests 06/10/21 04:35 06/11/21 04:40 Assessment/Plan Assessment/Plan (Tele-ICU Physician , Progress Note ) Available chart/ vitals / labs / Images reviewed Video assessment done using teleICU camera, rest of exam as per RN Discussed with RN , EXAM PER RN Events overnight : BIPAP Afebrile I/O = neg 3500 Drips: cardizem gtt off Pressors: , hemodynamically stable Consultants: laura Hospital course: 06/07 - ARF , afib RVR 06/08 - NC 6 l 06/09- BIPAP , VAPOTHERM , off cardizemn gtt, JESSICA ?1.4 - lasix stopped 06/10 - BIPAP 15/08 [id number], tv 350-700 MV 6-10L , 40% A/P Acute resp failure , CHF - on BIPAP 15/08 [id number], tv 350-700 MV 6-10L , 40% VAPOTHERM to try today to have PO intake , encourage IS and BIPAP at night ( low PCT - , not on ABX ) - TO CONT DIURESIS PER CARDS Encephalopathy - improving , repeated abg with resp acidosis and met alkalosi - CPM with bipap and diuresis for now - AAO , lethargic CHF - as per cardiology - lasix on hold with JESSICA 06/09 - resumed 06.10 - Cr improved - diuresis as per cardiology - Echo on 06/08/21: Mild to mod cardiomegaly, LVEF 45-50%. AoV sclerosis w/o stenosis. Mod TR. PASP 35 - 40 mmHg PAF , RVR - rate controlled, OFF cardizen gtt - AC - xarelto JESSICA - due to agressive diuresis - improved off lasix - follow now Reportedly SYEDA - pulm HTN - PASP 35 - 40 mmHg on ECHO - ? on CPAP [employer] Hyperkalemia - was tx - rising now again despite diuresis - monitor NUtrition - starts if tolerates off bipap Lines : priph (Central Line Necessity Reviewed) Acharya: + OG: Nutrition: PO to resume Analgesia: Anxiety/ delirium VTE Prophylaxis: xarelto Stress Ulcer Prophylaxis: - PPI Glycemic Control: Plans in collaboration with bedside consultants and IM MDs. Discussed with RN to reach out if any questions or concerns A total of 32 minutes of critical care time was devoted to this patient today, required to treat and/or prevent further deterioration of critical care condition ( as above) . GLORIA MORGAN MD Jun 11, 2021 10:47
--- NOTE | 2021-06-11 11:35 | Progress Note ---
Subjective Subjective Date Seen by Provider: Jun 11, 2021 Time Seen by Provider: 08:30 Patient appeared to be feeling better today. Denies any nausea/vomiting, sweats/chills, shortness of breath, chest pain or palpitations. He did not sleep well last night. Review of Systems General: No Chills, No Night Sweats Pulmonary: No Dyspnea Cardiovascular: No: Chest Pain Gastrointestinal: No: Nausea, Vomiting Objective Exam Vital Signs Vital Signs Date Time Temp Pulse Resp B/P (MAP) Pulse Ox O2 Delivery O2 Flow Rate FiO2 06/11/21 11:00 98 9 143/103 (116) 99 Vapotherm 40.00 60.00 06/11/21 10:40 97 Vapotherm 40.00 60 06/11/21 10:40 Vapotherm 40.00 60.00 06/11/21 10:00 98 13 134/100 (111) 98 NIV Bilevel 40.00 06/11/21 09:00 90 12 156/112 (127) 100 NIV Bilevel 40.00 06/11/21 08:02 95 NIV Bilevel 40 06/11/21 08:00 89 14 97/66 (76) 91 NIV Bilevel 40.00 06/11/21 07:51 85 18 99 40.00 06/11/21 07:35 36.2 06/11/21 07:00 96 39 98/70 (79) 100 NIV Bilevel 40.00 06/11/21 06:46 87 06/11/21 06:00 102 20 121/98 (106) 100 NIV Bilevel 40.00 06/11/21 05:00 110 24 129/111 (117) 94 NIV Bilevel 40.00 06/11/21 04:07 35.9 06/11/21 04:07 97 NIV Bilevel 40 06/11/21 04:00 83 16 125/98 (107) 93 NIV Bilevel 40.00 06/11/21 03:00 94 18 131/101 (111) 93 NIV Bilevel 40.00 06/11/21 02:00 80 20 131/112 (118) 95 NIV Bilevel 40.00 06/11/21 01:49 89 18 95 40.00 06/11/21 01:00 96 12 126/96 (106) 98 NIV Bilevel 40.00 06/11/21 01:00 91 06/11/21 00:14 36.1 06/11/21 00:00 87 19 133/105 (114) 96 NIV Bilevel 40.00 06/10/21 23:59 96 NIV Bilevel 40 06/10/21 23:00 89 16 143/113 (123) 92 NIV Bilevel 40.00 06/10/21 22:00 87 12 127/112 (117) 99 NIV Bilevel 40.00 06/10/21 21:00 102 14 146/100 (115) 96 NIV Bilevel 40.00 06/10/21 20:20 NIV Bilevel 40.00 06/10/21 20:19 40.00 06/10/21 20:17 90 16 100 50.00 06/10/21 20:00 96 NIV Bilevel 50 06/10/21 20:00 103 15 151/102 (118) 100 NIV Bilevel 50.00 06/10/21 20:00 36.0 06/10/21 19:01 90 16 97 50.00 06/10/21 19:00 95 19 130/101 (111) 100 NIV Bilevel 50.00 06/10/21 19:00 89 06/10/21 18:00 85 16 132/121 (125) 100 NIV Bilevel 100.00 06/10/21 17:00 98 14 114/84 (94) 96 NIV Bilevel 100.00 06/10/21 16:00 94 NIV Bilevel 30.00 06/10/21 16:00 105 16 131/101 (111) 95 NIV Bilevel 30.00 06/10/21 15:00 111 10 111/87 (95) NIV Bilevel 30.00 06/10/21 14:54 36.4 112 95 40 06/10/21 14:34 112 23 95 30.00 06/10/21 14:00 108 11 98/84 (89) NIV Bilevel 30.00 06/10/21 13:00 110 13 128/112 (117) NIV Bilevel 30.00 06/10/21 13:00 110 06/10/21 12:00 NIV Bilevel 30 06/10/21 12:00 36.4 06/10/21 12:00 115 35 129/88 (102) NIV Bilevel 30.00 I & O 06/11/21 07:00 Intake Total 620 ml Output Total 4450 ml Balance -3830 ml General Appearance: No Apparent Distress, Obese HEENT: PERRL/EOMI Neck: Normal Inspection, Supple Respiratory: No Respiratory Distress, Decreased Breath Sounds, Other (wearing BiPAP) Cardiovascular: Regular Rate, Rhythm, Irregularly Irregular Gastrointestinal: Normal Bowel Sounds, Non Tender, Soft Genital/Rectal: Other (scrotum swollen) Extremity: Non Tender, Pedal Edema, Other (Chronic venous stasis dermatitis bilateral LE) Neurologic/Psychiatric: Alert, Oriented x3 Skin: Normal Color, Warm/Dry Results Lab Laboratory Tests 06/11/21 04:40: White Blood Count 9.8, Red Blood Count 4.82, Hemoglobin 12.1L, Hematocrit 42, Mean Corpuscular Volume 86, Mean Corpuscular Hemoglobin 25, Mean Corpuscular Hemoglobin Concent 29L, Red Cell Distribution Width 20.0H, Platelet Count 215, Mean Platelet Volume 9.9, Immature Granulocyte % (Auto) 0, Neutrophils (%) (Auto) 75, Lymphocytes (%) (Auto) 12, Monocytes (%) (Auto) 11, Eosinophils (%) (Auto) 1, Basophils (%) (Auto) 0, Neutrophils # (Auto) 7.3, Lymphocytes # (Auto) 1.2, Monocytes # (Auto) 1.1H, Eosinophils # (Auto) 0.1, Basophils # (Auto) 0.0, Immature Granulocyte # (Auto) 0.0, Sodium Level 137, Potassium Level 5.1H, Chloride Level 94L, Carbon Dioxide Level 33H, Anion Gap 10, Blood Urea Nitrogen 19H, Creatinine 0.77, Estimat Glomerular Filtration Rate 103, BUN/Creatinine Ratio 25, Glucose Level 72, Calcium Level 9.2, Phosphorus Level 2.2L, Magnesium Level 1.9 Assessment/Plan Assessment/Plan Assessment and Plan Acute on chronic congestive heart failure Acute hypercapnic respiratory failure Hypertension Cardiology following Enalapril and Metoprolol Good output, renal function improving Continue IV Lasix Continue BiPAP, will need home BiPAP TeleICU following Paroxysmal atrial fibrillation with rapid ventricular response Continue Diltiazem, Metoprolol, Xarelto Coronary artery disease No acute management needs Morbid obesity Clinically significant, no acute management needs Tobacco abuse Refused nicotine patch JESSICA, resolved Hyperkalemia, resolved Leukocytosis, resolved Problems: (1) Acute respiratory failure with hypoxia and hypercapnia (2) JESSICA (acute kidney injury) (3) BiPAP (biphasic positive airway pressure) dependence (4) Paroxysmal atrial fibrillation with rapid ventricular response (5) Acute on chronic congestive heart failure Qualifiers: Qualified Codes: I50.33 - Acute on chronic diastolic (congestive) heart f ailure (6) Hypertension Qualifiers: Qualified Codes: I10 - Essential (primary) hypertension (7) Tobacco abuse (8) Morbid obesity Supervisory-Addendum Brief Verification & Attestation Participated in pt care: history, MDM, physical Personally performed: exam, history, MDM, supervision of care Care discussed with: Medical Student Procedures: n/a Results interpretation: Verified all documentation A medical student performed and documented this service in my presence. I reviewed and verified all information documented by the medical student and made modifications to such information, when appropriate. I personally performed the physical exam and medical decision making. ANTONIA CHEEMA Jun 11, 2021 11:34 JUAN MCKEON MD Jun 11, 2021 15:26
[2021-06-11] MEDS ORDERED: inSUlin ASPART (NovoLOG) 1 UNIT/0.01 ML (CHARGE PER UNIT) SQ SCH (12:00)
--- NOTE | 2021-06-11 14:37 | Physical Therapy Evaluation ---
PT Evaluation-General Medical Diagnosis Admission Date Jun 07, 2021 at 01:24 Medical Diagnosis: CHF exacerbation Onset Date: Jun 07, 2021 Therapy Diagnosis Therapy Diagnosis: generalized weakness/debility Precautions Precautions/Isolations: Fall Prevention, Standard Precautions Referral Physician: Joe Reason for Referral: Evaluation/Treatment Medical History Pertinent Medical History: Atrial Fib, CAD, Heart Failure, HTN, [place], Smoking Additional Medical History morbid obesity Current History admit secondary to SOA Reviewed History: Yes Social History Home: Single Level Current Living Status: Alone Prior Prior Level of Function SCALE: Activities may be completed with or without assistive devices. 3-Ruunphlxup-xcrsown completes the activity by him/herself with no assistance from a helper. 5-Set-up or Clean-up Assistance-helper sets up or cleans up; patient completes activity. [place] assists only prior to or following the activity. 4-Supervision or Touching Assistance-helper provides verbal cues and/or touching/steadying and/or contact guard assistance as patient completes activity. Assistance may be provided throughout the activity or intermittently. 3-Partial/Moderate Assistance-helper does LESS THAN HALF the effort. [place] lifts, holds or supports trunk or limbs, but provides less than half the effort. 2-Substantial/Maximal Assistance-helper does MORE THAN HALF the effort. [place] lifts or holds trunk or limbs and provides more than half the effort. 1-Jaztqvtqv-ltyywr does ALL the effort. Patient does none of the effort to complete the activity. Or, the assistance of 2 or more helpers is required for the patient to complete the activity. If activity was not attempted, code reason: 7-Patient Refused. 9-Not Applicable-not attempted and the patient did not perform the activity before the current illness, exacerbation or injury. 10-Not Attempted due to Environmental Limitations-(lack of equipment, weather restraints, etc.). 88-Not Attempted due to Medical Conditions or Safety Concerns. Bed Mobility: 6 Transfers (B,C,W/C): 6 Gait: 6 Stairs: 6 Indoor Mobility (Ambulation): Independent Stairs: Independent Prior Devices Use: None PT Evaluation-Current Subjective Patient agrees to PT. Currently on Vapotherm Objective Patient Orientation: Person, Confused Attachments: Oxygen (vapotherm), Acharya Catheter ROM/Strength ROM Lower Extremities bilateral LE WFL Strength Lower Extremities 4-/5 grossly bilateral LE Integumentary/Posture Bladder Incontinence: Acharya Cath Posture WFL Neuromuscular (Tone, Coordination, Reflexes) grossly intact Sensory Vision: Functional Hearing: Functional Transfers Roll Left to Right (QC): 4 Lying to Sitting/Side of Bed(Q: 4 Sit to Stand (QC): 4 Chair/Gkj-gn-Afoba Xfer(QC): 4 Gait Does the Patient Walk?: Yes Mode of Locomotion: Walk Anticipated Mode of Locomotion: Walk Walk 10 feet (QC): 4 Walk 50 ft with 2 Turns(QC): 88 Walk 150 ft (QC): 88 Distance: 10' Gait Assistive Device: FWW Comments/Gait Description limited by vapotherm tubing Balance Sitting Static: Normal Sitting Dynamic: Normal Standing Static: Fair Standing Dynamic: Fair Assessment/Needs 60 y.o. male, will be seen short term by skilled PT to address functional strength and mobility to improve current LOF to safely return to home at maximum LOF. Rehab Potential: Fair PT Manager Hi Goals Prison Goals PT Prison Goals Time Frame: Jun 20, 2021 Roll Left & Right (QC): 6 Sit to Lying (QC): 6 Lying-Sitting on Side/Bed(QC): 6 Sit to Stand (QC): 6 Chair/Vov-tu-Vfwij Xfer(QC): 6 Toilet Transfer (QC): 6 Walk 10 feet (QC): 6 Walk 50ft with 2 Turns (QC): 6 Walk 150 ft (QC): 6 PT Plan Problem List Problem List: Activity Tolerance, Functional Strength, Safety, Balance, Gait, Transfer, Bed Mobility Treatment/Plan Treatment Plan: Continue Plan of Care Treatment Plan: Bed Mobility, Education, Functional Activity Mary, Functional Strength, Gait, Safety, Therapeutic Exercise, Transfers Treatment Duration: Jun 20, 2021 Frequency: 6 times per week Estimated Hrs Per Day: .25 hour per day Patient and/or Family Agrees t: Yes Time/GCodes Time In: 1403 Time Out: 1414 Total Billed Treatment Time: 11 Total Billed Treatment 1 visit EVModC 11 min TOM MEDRANO PT Jun 11, 2021 14:37
[2021-06-11] MEDS: inSUlin ASPART (NovoLOG) 1 UNIT/0.01 ML (CHARGE PER UNIT) SQ SCH ×2 (15:37→20:12)
[2021-06-11] MEDS: RIVAROXABAN 20 MG TABLET (XARELTO) PO SCH (17:15)
[2021-06-11] MEDS ORDERED: fentaNYL INJ 100 MCG/2 ML AMP ONE (20:08)
[2021-06-11] MEDS: fentaNYL INJ 100 MCG/2 ML AMP IVP PRN (20:12)
[2021-06-12] VITALS (16 sets, daily range): BP systolic 81–132; BP diastolic 64–112
[2021-06-12] MEDS: RT-ALBUTEROL/IPRATROPIUM 3 ML (DUONEB) VIAL INH SCH ×3 (02:39→21:13)
[2021-06-12 04:12] LABS: BASOPHILS % (AUTO) 0 % (0-10); EOSINOPHILS # (AUTO) 0.2 10^3/uL (0.0-0.3); EOSINOPHILS % (AUTO) 2 % (0-10); HEMATOCRIT 37 % (40-54); HEMOGLOBIN 11.1 g/dL (13.3-17.7); LYMPHOCYTES # (AUTO) 1.6 10^3/uL (1.0-4.0); LYMPHOCYTES % (AUTO) 19 % (12-44); MEAN CORPUSCULAR HEMOGLOBIN 25 pg (25-34); MEAN CORPUSCULAR HGB CONC 30 g/dL (32-36); MEAN CORPUSCULAR VOLUME 84 fL (80-99); MEAN PLATELET VOLUME 9.2 fL (9.0-12.2); MONOCYTES # (AUTO) 0.9 10^3/uL (0.0-1.0); MONOCYTES % (AUTO) 12 % (0-12); NEUTROPHILS # (AUTO) 5.3 10^3/uL (1.8-7.8); NEUTROPHILS % (AUTO) 66 % (42-75); PLATELET COUNT 271 10^3/uL (130-400)
[2021-06-12 04:29] LABS: CALCIUM 8.7 MG/DL (8.5-10.1); CREATININE SERUM 0.83 MG/DL (0.60-1.30); MAGNESIUM 1.7 MG/DL (1.6-2.4); POTASSIUM 3.6 MMOL/L (3.6-5.0)
[2021-06-12] MEDS: MAGNESIUM 1 GM/100 ML IVPB 100 ML IV SCH ×3 (04:43→05:44)
[2021-06-12] MEDS: POTASSIUM CL 10MEQ/50ML IVPB 50 ML IV SCH ×3 (04:43→05:44)
[2021-06-12] MEDS: inSUlin ASPART (NovoLOG) 1 UNIT/0.01 ML (CHARGE PER UNIT) SQ SCH ×4 (04:44→21:44)
[2021-06-12] MEDS: KCL 20 MEQ TAB (K-DUR) PO SCH (04:44)
[2021-06-12] MEDS: fentaNYL INJ 100 MCG/2 ML AMP IVP PRN (04:52)
[2021-06-12] MEDS ORDERED: FUROSEMIDE 40 MG/4 ML INJ (LASIX) IVP ONE (08:00)
--- NOTE | 2021-06-12 08:14 | Tele-ICU Progress Note ---
Subjective Date Seen by a Provider: Jun 12, 2021 Time Seen by a Provider: 09:57 Subjective/Events-last exam On 4 lpm NC, with good SpO2 On po Cardizem 240, daily Lasix for CHF [IV and po] CXR difficult to read due to obesity but has very enlarged heart, mild congestion Pt is DNR/DNI , compressions and meds only Potassium controlled at 3.6, Cr 0.83 Has chronic hypercarbic resp failure some confusion Sepsis Event Evaluation Height, Weight, BMI Height: '" Weight: lbs. oz. kg; 49.52 BMI Method: Exam Exam Patient acknowledged, consented, and participated in this virtual visit which was conducted using real time audio/video Vital Signs Date Time Temp Pulse Resp B/P (MAP) Pulse Ox O2 Delivery O2 Flow Rate FiO2 06/12/21 08:00 84 15 81/64 (70) 99 High Flow N/C 4.00 06/12/21 07:35 98 Nasal Cannula 4.00 06/12/21 07:35 36.1 06/12/21 07:00 76 06/12/21 07:00 85 13 113/85 (94) 97 High Flow N/C 4.00 06/12/21 06:00 92 11 101/68 (79) 90 High Flow N/C 4.00 06/12/21 05:00 93 11 97/77 (84) 90 High Flow N/C 4.00 06/12/21 04:00 97 High Flow N/C 4.00 06/12/21 04:00 36.3 High Flow N/C 4.00 06/12/21 04:00 96 24 101/83 (89) 95 High Flow N/C 4.00 06/12/21 03:00 90 12 114/77 (89) 95 High Flow N/C 4.00 06/12/21 02:39 96 High Flow N/C 4.00 06/12/21 02:00 High Flow N/C 4.00 06/12/21 02:00 101 13 96 High Flow N/C 4.00 06/12/21 01:00 77 16 116/76 (89) 95 NIV Bilevel 40.00 06/12/21 01:00 74 06/12/21 00:00 84 19 125/95 (105) 95 NIV Bilevel 40.00 06/11/21 23:35 36.5 NIV Bilevel 40.00 06/11/21 23:35 95 NIV Bilevel 40 06/11/21 23:00 80 18 102/69 (80) 94 NIV Bilevel 40.00 06/11/21 22:00 92 12 99/76 (84) 97 NIV Bilevel 40.00 06/11/21 21:50 NIV Bilevel 40.00 06/11/21 21:14 84 17 98 40.00 06/11/21 21:00 98 20 105/80 (88) 98 Vapotherm 30.00 40.00 06/11/21 20:00 98 14 104/71 (82) 93 Vapotherm 30.00 40.00 06/11/21 19:34 Vapotherm 20.00 30.00 06/11/21 19:30 100 Vapotherm 30.00 40 06/11/21 19:26 36.4 Vapotherm 30.00 40.00 06/11/21 19:00 98 20 105/80 (88) 98 Vapotherm 30.00 40.00 06/11/21 19:00 92 06/11/21 18:00 78 16 122/67 (85) 92 Vapotherm 30.00 40.00 06/11/21 17:00 89 8 121/70 (87) 96 Vapotherm 30.00 40.00 06/11/21 16:00 65 14 93/71 (78) 96 Vapotherm 30.00 40.00 06/11/21 15:36 36.0 06/11/21 15:16 Vapotherm 30.00 40 06/11/21 15:00 73 16 98/62 (74) 100 Vapotherm 30.00 40.00 06/11/21 14:50 Vapotherm 30.00 40.00 06/11/21 14:47 100 Vapotherm 30.00 40 06/11/21 14:00 81 18 105/69 (81) 100 Vapotherm 40.00 60.00 06/11/21 13:31 140/95 (110) 06/11/21 13:13 114 06/11/21 12:00 96 13 156/144 (148) 91 Vapotherm 40.00 60.00 06/11/21 12:00 97 Vapotherm 40.00 60 06/11/21 11:35 36.4 06/11/21 11:00 98 9 143/103 (116) 99 Vapotherm 40.00 60.00 06/11/21 10:40 97 Vapotherm 40.00 60 06/11/21 10:40 Vapotherm 40.00 60.00 06/11/21 10:00 98 13 134/100 (111) 98 NIV Bilevel 40.00 06/11/21 09:00 90 12 156/112 (127) 100 NIV Bilevel 40.00 I & O 06/12/21 07:00 Intake Total 1500 ml Output Total 3545 ml Balance -2045 ml Height & Weight Height: '" Weight: lbs. oz. kg; 49.52 BMI Method: General Appearance: No Apparent Distress, Obese (confused at times) HEENT: PERRL/EOMI Neck: Normal Inspection, Supple Respiratory: No Respiratory Distress, Decreased Breath Sounds (breath sounds are better compared to yesterday), Other (wearing BiPAP) Cardiovascular: Regular Rate, Rhythm, Irregularly Irregular Gastrointestinal: normal bowel sounds, distended (just started eating, good appettie, less distnsion) Extremity: Non Tender, Pedal Edema (edema is about same, arm, face abd wall edema better legs about same), Other (Chronic venous stasis dermatitis bilateral LE) Neurologic/Psychiatric: Alert, Oriented x3 Skin: Normal Color, Warm/Dry Results Lab Laboratory Tests 06/11/21 04:40 06/12/21 04:00 Assessment/Plan Assessment/Plan Acute resp failure , CHF , encourage IS and BIPAP at night ( low PCT - , not on ABX ) - TO CONT DIURESIS PER CARDS Encephalopathy - improving , repeated abg with resp acidosis and met alkalosi - CPM with bipap and diuresis for now - AAO , lethargic CHF - as per cardiology - lasix on hold with JESSICA 06/09 - resumed .13 - Cr improved - diuresis as per cardiology - Echo on 06/08/21: Mild to mod cardiomegaly, LVEF 45-50%. AoV sclerosis w/o stenosis. Mod TR. PASP 35 - 40 mmHg PAF , RVR - rate controlled usually in 80's, OFF cardizen gtt - AC - xarelto JESSICA - due to agressive diuresis - improved off lasix Cr 0.83 - follow now Reportedly SYEDA - pulm HTN - PASP 35 - 40 mmHg on ECHO - ? on CPAP [employer]ONDS [employer]ER Hyperkalemia - was tx - rising now again despite diuresis - monitor NUtrition - starts if tolerates off bipap, tolerating eating Lines : priph (Central Line Necessity Reviewed) Acharya: + OG: Nutrition: PO to resume Analgesia: Anxiety/ delirium VTE Prophylaxis: xarelto Stress Ulcer Prophylaxis: - PPI Glycemic Control: Plans in collaboration with bedside consultants and IM MDs. Discussed with RN to reach out if any questions or concerns Critical Care: Critically Ill Patient Time spent with patient (mins): 25 TRAVON WILLIS MD Jun 12, 2021 08:14
[2021-06-12] MEDS: PANTOPRAZOLE 40 MG (PROTONIX) VIAL IV SCH (08:48)
[2021-06-12] MEDS: ENALAPRIL 2.5 MG (VASOTEC) TAB PO SCH ×2 (08:48→21:46)
[2021-06-12] MEDS: meTOproloL SUCCINATE 50 MG (TOPROL XL) TAB PO SCH ×2 (08:48→21:46)
[2021-06-12] MEDS: NYSTATIN CREAM (MYCOSTATIN) 30 GM TUBE TP SCH ×3 (08:49→21:47)
[2021-06-12] MEDS: FUROSEMIDE 40 MG (LASIX) TAB PO SCH (09:40)
--- NOTE | 2021-06-12 12:53 | Progress Note ---
Subjective Subjective Date Seen by Provider: Jun 12, 2021 Time Seen by Provider: 08:30 Patient feeling better this morning and wants to go home. He denied having any SOA even when not using BiPAP. Also denies any nausea/vomiting, sweats/chills, cough, chest pain or palpitations. Review of Systems General: No Chills, No Night Sweats Pulmonary: No Dyspnea Cardiovascular: No: Chest Pain Gastrointestinal: No: Nausea, Vomiting Objective Exam Vital Signs Vital Signs Date Time Temp Pulse Resp B/P (MAP) Pulse Ox O2 Delivery O2 Flow Rate FiO2 06/12/21 12:35 91 06/12/21 12:00 98 17 94 High Flow N/C 2.00 06/12/21 11:39 98 Nasal Cannula 4.00 06/12/21 11:37 36.4 06/12/21 11:00 92 18 120/77 (91) 100 High Flow N/C 2.00 06/12/21 10:00 89 16 113/73 (86) 97 High Flow N/C 4.00 06/12/21 09:00 95 14 93/72 (79) 93 High Flow N/C 4.00 06/12/21 08:00 84 15 81/64 (70) 99 High Flow N/C 4.00 06/12/21 07:35 98 Nasal Cannula 4.00 06/12/21 07:35 36.1 06/12/21 07:00 76 06/12/21 07:00 85 13 113/85 (94) 97 High Flow N/C 4.00 06/12/21 06:00 92 11 101/68 (79) 90 High Flow N/C 4.00 06/12/21 05:00 93 11 97/77 (84) 90 High Flow N/C 4.00 06/12/21 04:00 97 High Flow N/C 4.00 06/12/21 04:00 36.3 High Flow N/C 4.00 06/12/21 04:00 96 24 101/83 (89) 95 High Flow N/C 4.00 06/12/21 03:00 90 12 114/77 (89) 95 High Flow N/C 4.00 06/12/21 02:39 96 High Flow N/C 4.00 06/12/21 02:00 High Flow N/C 4.00 06/12/21 02:00 101 13 96 High Flow N/C 4.00 06/12/21 01:00 77 16 116/76 (89) 95 NIV Bilevel 40.00 06/12/21 01:00 74 06/12/21 00:00 84 19 125/95 (105) 95 NIV Bilevel 40.00 06/11/21 23:35 36.5 NIV Bilevel 40.00 06/11/21 23:35 95 NIV Bilevel 40 06/11/21 23:00 80 18 102/69 (80) 94 NIV Bilevel 40.00 06/11/21 22:00 92 12 99/76 (84) 97 NIV Bilevel 40.00 06/11/21 21:50 NIV Bilevel 40.00 06/11/21 21:14 84 17 98 40.00 06/11/21 21:00 98 20 105/80 (88) 98 Vapotherm 30.00 40.00 06/11/21 20:00 98 14 104/71 (82) 93 Vapotherm 30.00 40.00 06/11/21 19:34 Vapotherm 20.00 30.00 06/11/21 19:30 100 Vapotherm 30.00 40 06/11/21 19:26 36.4 Vapotherm 30.00 40.00 06/11/21 19:00 98 20 105/80 (88) 98 Vapotherm 30.00 40.00 06/11/21 19:00 92 06/11/21 18:00 78 16 122/67 (85) 92 Vapotherm 30.00 40.00 06/11/21 17:00 89 8 121/70 (87) 96 Vapotherm 30.00 40.00 06/11/21 16:00 65 14 93/71 (78) 96 Vapotherm 30.00 40.00 06/11/21 15:36 36.0 06/11/21 15:16 Vapotherm 30.00 40 06/11/21 15:00 73 16 98/62 (74) 100 Vapotherm 30.00 40.00 06/11/21 14:50 Vapotherm 30.00 40.00 06/11/21 14:47 100 Vapotherm 30.00 40 06/11/21 14:00 81 18 105/69 (81) 100 Vapotherm 40.00 60.00 06/11/21 13:31 140/95 (110) 06/11/21 13:13 114 I & O 06/12/21 07:00 Intake Total 1500 ml Output Total 3545 ml Balance -2045 ml General Appearance: No Apparent Distress, Obese (confused at times) HEENT: PERRL/EOMI Neck: Normal Inspection, Supple Respiratory: No Respiratory Distress, Decreased Breath Sounds (breath sounds are better compared to yesterday), Other (Nasal Cannula O2) Cardiovascular: Regular Rate, Rhythm, Irregularly Irregular Gastrointestinal: Normal Bowel Sounds, Non Tender, Soft Genital/Rectal: Other (scrotum swollen) Extremity: Non Tender, Pedal Edema (edema is about same, arm, face abd wall edema better legs about same), Other (Chronic venous stasis dermatitis bilateral LE) Neurologic/Psychiatric: Alert, Oriented x3 Skin: Normal Color, Warm/Dry Results Lab Laboratory Tests 06/11/21 15:28: Glucometer 123H 06/11/21 20:11: Glucometer 135H 06/12/21 04:00: White Blood Count 8.0, Red Blood Count 4.42, Hemoglobin 11.1L, Hematocrit 37L, Mean Corpuscular Volume 84, Mean Corpuscular Hemoglobin 25, Mean Corpuscular Hemoglobin Concent 30L, Red Cell Distribution Width 19.8H, Platelet Count 271, Mean Platelet Volume 9.2, Immature Granulocyte % (Auto) 0, Neutrophils (%) (Auto) 66, Lymphocytes (%) (Auto) 19, Monocytes (%) (Auto) 12, Eosinophils (%) (Auto) 2, Basophils (%) (Auto) 0, Neutrophils # (Auto) 5.3, Lymphocytes # (Auto) 1.6, Monocytes # (Auto) 0.9, Eosinophils # (Auto) 0.2, Basophils # (Auto) 0.0, Immature Granulocyte # (Auto) 0.0, Sodium Level 139, Potassium Level 3.6, Chloride Level 95L, Carbon Dioxide Level 35H, Anion Gap 9, Blood Urea Nitrogen 19H, Creatinine 0.83, Estimat Glomerular Filtration Rate 95, BUN/Creatinine Ratio 23, Glucose Level 145H, Calcium Level 8.7, Magnesium Level 1.7 06/12/21 10:51: Glucometer 110 Assessment/Plan Assessment/Plan Assessment and Plan Acute on chronic congestive heart failure Acute hypercapnic respiratory failure Hypertension Cardiology following Enalapril and Metoprolol Good output, renal function stable Continue IV Lasix TeleICU following Paroxysmal atrial fibrillation with rapid ventricular response Continue Diltiazem, Metoprolol, Xarelto Coronary artery disease No acute management needs Debility PT/OT Morbid obesity Clinically significant, no acute management needs Tobacco abuse Refused nicotine patch JESSICA, resolved Hyperkalemia, resolved Leukocytosis, resolved Supervisory-Addendum Brief Verification & Attestation Participated in pt care: history, MDM, physical Personally performed: exam, history, MDM, supervision of care Care discussed with: Medical Student Procedures: n/a Results interpretation: Verified all documentation A medical student performed and documented this service in my presence. I rev iewed and verified all information documented by the medical student and made modifications to such information, when appropriate. I personally performed the physical exam and medical decision making. ANTONIA CHEEMA Jun 12, 2021 12:53 JUAN MCKEON MD Jun 12, 2021 22:02
--- NOTE | 2021-06-12 13:20 | Physical Therapy Daily Note ---
PT Daily Note-Current Subjective Patient agrees to PT. He report he hopes to go home today. Mental Status Patient Orientation: Person, Time, Situation Attachments: Oxygen (5L), Acharya Catheter Transfers SCALE: Activities may be completed with or without assistive devices. 5-Svafpecvtq-nwrhghx completes the activity by him/herself with no assistance from a helper. 5-Set-up or Clean-up Assistance-helper sets up or cleans up; patient completes activity. [place] assists only prior to or following the activity. 4-Supervision or Touching Assistance-helper provides verbal cues and/or touching/steadying and/or contact guard assistance as patient completes activity. Assistance may be provided throughout the activity or intermittently. 3-Partial/Moderate Assistance-helper does LESS THAN HALF the effort. [place] lifts, holds or supports trunk or limbs, but provides less than half the effort. 2-Substantial/Maximal Assistance-helper does MORE THAN HALF the effort. [place] lifts or holds trunk or limbs and provides more than half the effort. 9-Xcrdnkcgr-apvsfe does ALL the effort. Patient does none of the effort to complete the activity. Or, the assistance of 2 or more helpers is required for the patient to complete the activity. If activity was not attempted, code reason: 7-Patient Refused. 9-Not Applicable-not attempted and the patient did not perform the activity before the current illness, exacerbation or injury. 10-Not Attempted due to Environmental Limitations-(lack of equipment, weather restraints, etc.). 88-Not Attempted due to Medical Conditions or Safety Concerns. Sit to Stand (QC): 5 Gait Training Distance: 50' Walk 10 feet (QC): 4 Walk 50 ft with 2 Turns(QC): 4 Gait Assistive Device: FWW SBA for safety/safe and functional gait sequence Assessment Patient remains up in recliner. SAO2 97% with activity on 5L HF PT Shelter Goals Shelter Goals PT Youth Liaison Officer Goals Time Frame: Jun 20, 2021 Roll Left & Right (QC): 6 Sit to Lying (QC): 6 Lying-Sitting on Side/Bed(QC): 6 Sit to Stand (QC): 6 Chair/Mhd-nw-Zuiim Xfer(QC): 6 Toilet Transfer (QC): 6 Walk 10 feet (QC): 6 Walk 50ft with 2 Turns (QC): 6 Walk 150 ft (QC): 6 PT Plan Treatment/Plan Treatment Plan: Continue Plan of Care Treatment Plan: Bed Mobility, Education, Functional Activity Mary, Functional Strength, Gait, Safety, Therapeutic Exercise, Transfers Treatment Duration: Jun 20, 2021 Frequency: 6 times per week Estimated Hrs Per Day: .25 hour per day Patient and/or Family Agrees t: Yes Time/GCodes Time In: 1105 Time Out: 1119 Total Billed Treatment Time: 14 Total Billed Treatment 1 visit FA 14 min TOM MEDRANO PT Jun 12, 2021 13:20
[2021-06-12] MEDS ORDERED: RIVA20TA PO (13:45)
[2021-06-12] MEDS ORDERED: POTA10TA36 PO (13:45)
[2021-06-12] MEDS ORDERED: FURO40TA4 PO (13:45)
[2021-06-12] MEDS ORDERED: DILT240C91 PO (13:45)
--- NOTE | 2021-06-12 15:32 | Progress Note - Cardiology ---
Cardiology SOAP Progress Note Subjective: Doesn't report cp or palp or syncope or shortness of breath No n/v/d Some gen malaise Wishes to go home Objective: I&O/Vital Signs 06/12/21 06/12/21 06/12/21 06/12/21 04:00 04:00 04:00 05:00 Temp 36.3 Pulse 96 93 Resp 24 11 B/P (MAP) 101/83 (89) 97/77 (84) Pulse Ox 95 97 90 O2 Delivery High Flow N/C High Flow N/C High Flow N/C High Flow N/C O2 Flow Rate 4.00 4.00 4.00 4.00 06/12/21 06/12/21 06/12/21 06/12/21 06:00 07:00 07:00 07:35 Temp 36.1 Pulse 92 85 76 Resp 11 13 B/P (MAP) 101/68 (79) 113/85 (94) Pulse Ox 90 97 O2 Delivery High Flow N/C High Flow N/C O2 Flow Rate 4.00 4.00 06/12/21 06/12/21 06/12/21 06/12/21 07:35 08:00 09:00 10:00 Pulse 84 95 89 Resp 15 14 16 B/P (MAP) 81/64 (70) 93/72 (79) 113/73 (86) Pulse Ox 98 99 93 97 O2 Delivery Nasal Cannula High Flow N/C High Flow N/C High Flow N/C O2 Flow Rate 4.00 4.00 4.00 4.00 06/12/21 06/12/21 06/12/21 06/12/21 11:00 11:37 11:39 12:00 Temp 36.4 Pulse 92 98 Resp 18 17 B/P (MAP) 120/77 (91) Pulse Ox 100 98 94 O2 Delivery High Flow N/C Nasal Cannula High Flow N/C O2 Flow Rate 2.00 4.00 2.00 06/12/21 06/12/21 06/12/21 06/12/21 12:35 13:00 14:00 15:00 Pulse 91 78 82 96 Resp 17 30 12 B/P (MAP) 110/68 (82) 99/72 (81) 110/71 (84) Pulse Ox 91 95 91 O2 Delivery High Flow N/C High Flow N/C High Flow N/C O2 Flow Rate 2.00 2.00 2.00 06/12/21 06/12/21 15:06 15:15 Temp 36.8 Pulse Ox 98 O2 Delivery Nasal Cannula O2 Flow Rate 4.00 06/12/21 00:00 Intake Total 1100 ml Output Total 2300 ml Balance -1200 ml Constitutional: AAO x 3 Respiratory: No accessory muscle use; other (fair, bilateral air entry; coarse basal crackles) Cardiovascular: irregularly irregular, S1 and S2, systolic murmur (soft SAUL at card base) Gastrointestional: No tender; soft; No guarding, No rebound; audible bowel sounds Extremities: No clubbing, No cyanosis; significant edema (mod bilat LE swelling; improved; redness and keratosis of overlying leg skin) Neurologic/Psychiatric: grossly intact (moves all extremities) Skin: warm/dry, other (see under extremities exam) Results/Procedures: Labs Laboratory Tests 06/11/21 20:11: Glucometer 135H 06/12/21 04:00: White Blood Count 8.0, Red Blood Count 4.42, Hemoglobin 11.1L, Hematocrit 37L, Mean Corpuscular Volume 84, Mean Corpuscular Hemoglobin 25, Mean Corpuscular Hemoglobin Concent 30L, Red Cell Distribution Width 19.8H, Platelet Count 271, Mean Platelet Volume 9.2, Immature Granulocyte % (Auto) 0, Neutrophils (%) (Auto) 66, Lymphocytes (%) (Auto) 19, Monocytes (%) (Auto) 12, Eosinophils (%) (Auto) 2, Basophils (%) (Auto) 0, Neutrophils # (Auto) 5.3, Lymphocytes # (Auto) 1.6, Monocytes # (Auto) 0.9, Eosinophils # (Auto) 0.2, Basophils # (Auto) 0.0, Immature Granulocyte # (Auto) 0.0, Sodium Level 139, Potassium Level 3.6, Chloride Level 95L, Carbon Dioxide Level 35H, Anion Gap 9, Blood Urea Nitrogen 19H, Creatinine 0.83, Estimat Glomerular Filtration Rate 95, BUN/Creatinine Ratio 23, Glucose Level 145H, Calcium Level 8.7, Magnesium Level 1.7 06/12/21 10:51: Glucometer 110 06/12/21 15:06: Glucometer 137H A/P: Assessment: Ac systolic CHF of undetermined etiology - Echo on 06/08/21: Mild to mod cardiomegaly, LVEF 45-50%. AoV sclerosis w/o stenosis. Mod TR. PASP 35 - 40 mmHg A-fib - undetermined length of time - first seen on EKG on 06-07-21 Hypersomnolence and impaired responsiveness of undetermined etiology - somewhat improved this morning Hyperkalemia - resolved DM II Suspected SYEDA Plan: * Mental status has improved * Treat CHF with diuretics as needed and as tolerated * Continue oral dilt and beta-nima for vent rate control * Continue oral OAC for stroke prophylaxis * Continue beta-nima and MIMI-inhib for cardiomyopathy * Outpatient Cardiology f/u advised BARBARA MELGAR MD FACP FAC CCDS Jun 12, 2021 15:32
[2021-06-12] MEDS: RIVAROXABAN 20 MG TABLET (XARELTO) PO SCH (16:04)
--- NOTE | 2021-06-12 16:21 | Discharge Summary ---
Discharge Summary Hospital Course Was the Problem List Reviewed?: Yes Problems/Dx: (1) Acute respiratory failure with hypoxia and hypercapnia Status: Acute (2) JESSICA (acute kidney injury) Status: Resolved (3) Paroxysmal atrial fibrillation with rapid ventricular response Status: Acute (4) Acute on chronic congestive heart failure Status: Acute Qualifiers: Qualified Codes: I50.33 - Acute on chronic diastolic (congestive) heart failure (5) Hypertension Status: Chronic Qualifiers: Qualified Codes: I10 - Essential (primary) hypertension (6) Tobacco abuse Status: Chronic (7) Morbid obesity Status: Chronic Hospital Course Date of Admission: Jun 07, 2021 at 01:24 Admission Diagnosis : Family Physician/Provider: Date of Discharge: 06/12/21 Discharge Diagnosis: [ ] Hospital Course: [ ] Labs and Pending Lab Test: Laboratory Tests 06/11/21 20:11: Glucometer 135H 06/12/21 04:00: White Blood Count 8.0, Red Blood Count 4.42, Hemoglobin 11.1L, Hematocrit 37L, Mean Corpuscular Volume 84, Mean Corpuscular Hemoglobin 25, Mean Corpuscular Hemoglobin Concent 30L, Red Cell Distribution Width 19.8H, Platelet Count 271, Mean Platelet Volume 9.2, Immature Granulocyte % (Auto) 0, Neutrophils (%) (Auto) 66, Lymphocytes (%) (Auto) 19, Monocytes (%) (Auto) 12, Eosinophils (%) (Auto) 2, Basophils (%) (Auto) 0, Neutrophils # (Auto) 5.3, Lymphocytes # (Auto) 1.6, Monocytes # (Auto) 0.9, Eosinophils # (Auto) 0.2, Basophils # (Auto) 0.0, Immature Granulocyte # (Auto) 0.0, Sodium Level 139, Potassium Level 3.6, Chloride Level 95L, Carbon Dioxide Level 35H, Anion Gap 9, Blood Urea Nitrogen 19H, Creatinine 0.83, Estimat Glomerular Filtration Rate 95, BUN/Creatinine Ratio 23, Glucose Level 145H, Calcium Level 8.7, Magnesium Level 1.7 06/12/21 10:51: Glucometer 110 06/12/21 15:06: Glucometer 137H Home Meds Active Potassium Chloride 10 Meq Tab.er.prt 10 Meq PO DAILY 30 Days Furosemide 40 Mg Tablet 40 Mg PO DAILY 30 Days Diltiazem 24Hr ER (Diltiazem HCl) 240 Mg Cap.er.24h 240 Mg PO DAILY 30 Days Xarelto (Rivaroxaban) 20 Mg Tablet 20 Mg PO HS 30 Days LAST FILLED 03/20/2021 #30 30 DAY SUPPLY Reported Metformin HCl 500 Mg Tablet 500 Mg PO BID Lisinopril 2.5 Mg Tablet 2.5 Mg PO DAILY Metoprolol Tartrate 50 Mg Tablet 50 Mg PO BID Assessment/Pt Instructions Take medications as prescribed. Follow up with your PCP and Cardiology. Return with worsening shortness of breath or if you feel like you are getting worse. Discharge Planning: >30 minutes discharge planning Discharge Instructions Discharge Diet: Low Sodium Diet Activity as Tolerated: Yes Consultations Cardiology Discharge Physical Examination Vital Signs Vital Signs Date Time Temp Pulse Resp B/P (MAP) Pulse Ox O2 Delivery O2 Flow Rate FiO2 06/12/21 15:15 98 Nasal Cannula 4.00 06/12/21 15:06 36.8 06/12/21 15:00 96 12 110/71 (84) 06/11/21 23:35 40 General Appearance: No Apparent Distress, Chronically ill, Obese Respiratory: No Respiratory Distress, Decreased Breath Sounds Cardiovascular: No Murmur, Irregularly Irregular Gastrointestinal: Normal Bowel Sounds, Non Tender, Soft Extremity: Non Tender; No Inflammation; Pedal Edema, Swelling Skin: Normal Color, Warm/Dry, Other (chronic venous stasis dermatitis) Neurologic/Psychiatric: Alert, Oriented x3, Other (flat affect) Allergies: Coded Allergies: Penicillins (Verified Allergy, Unknown, 06/07/21) Discharge Summary Date of Admission Jun 07, 2021 at 01:24 Date of Discharge Discharge Date: Jun 12, 2021 Discharge Time: 15:59 Admission Diagnosis Acute on chronic congestive heart failure Consults/Procedures Consulations Cardiology Discharge Diagnosis Acute respiratory failure with hypoxia and hypercapnia Acute on chronic congestive heart failure Paroxysmal atrial fibrillation with rapid ventricular response (1) Acute respiratory failure with hypoxia and hypercapnia Status: Acute (2) JESSICA (acute kidney injury) Status: Resolved (3) Paroxysmal atrial fibrillation with rapid ventricular response Status: Acute (4) Acute on chronic congestive heart failure Status: Acute Qualifiers: Qualified Codes: I50.33 - Acute on chronic diastolic (congestive) heart failure (5) Hypertension Status: Chronic Qualifiers: Qualified Codes: I10 - Essential (primary) hypertension (6) Tobacco abuse Status: Chronic (7) Morbid obesity Status: Chronic JUAN MCKEON MD Jun 12, 2021 16:02
[2021-06-13] VITALS: BP_SYST 90; BP_SYST 93; BP_DIAS 57; BP_DIAS 60
[2021-06-13] MEDS: RT-ALBUTEROL/IPRATROPIUM 3 ML (DUONEB) VIAL INH SCH ×2 (02:19→07:57)
[2021-06-13 04:00] VITALS: BP_SYST 101; BP_SYST 145; BP_DIAS 60; BP_DIAS 84
[2021-06-13 05:10] LABS: BASOPHILS # (AUTO) 0.1 10^3/uL (0.0-0.1); BASOPHILS % (AUTO) 1 % (0-10); EOSINOPHILS # (AUTO) 0.2 10^3/uL (0.0-0.3); EOSINOPHILS % (AUTO) 2 % (0-10); HEMATOCRIT 37 % (40-54); HEMOGLOBIN 11.2 g/dL (13.3-17.7); LYMPHOCYTES # (AUTO) 1.4 10^3/uL (1.0-4.0); LYMPHOCYTES % (AUTO) 18 % (12-44); MEAN CORPUSCULAR HEMOGLOBIN 25 pg (25-34); MEAN CORPUSCULAR HGB CONC 30 g/dL (32-36); MEAN CORPUSCULAR VOLUME 84 fL (80-99); MEAN PLATELET VOLUME 9.8 fL (9.0-12.2); MONOCYTES # (AUTO) 0.9 10^3/uL (0.0-1.0); MONOCYTES % (AUTO) 12 % (0-12); NEUTROPHILS # (AUTO) 4.9 10^3/uL (1.8-7.8); NEUTROPHILS % (AUTO) 67 % (42-75); PLATELET COUNT 203 10^3/uL (130-400); WHITE BLOOD COUNT 7.4 10^3/uL (4.3-11.0)
[2021-06-13 05:28] LABS: POTASSIUM 3.7 MMOL/L (3.6-5.0)
[2021-06-13 05:29] LABS: CALCIUM 8.7 MG/DL (8.5-10.1)
[2021-06-13 05:34] LABS: CREATININE SERUM 0.8 MG/DL (0.60-1.30)
[2021-06-13 05:36] LABS: MAGNESIUM 1.7 MG/DL (1.6-2.4)
[2021-06-13] MEDS: inSUlin ASPART (NovoLOG) 1 UNIT/0.01 ML (CHARGE PER UNIT) SQ SCH ×2 (06:50→11:48)
[2021-06-13 08:00] VITALS: BP 110/93
[2021-06-13] MEDS ORDERED: FUROSEMIDE 40 MG/4 ML INJ (LASIX) IVP ONE (08:00)
[2021-06-13] MEDS: PANTOPRAZOLE 40 MG (PROTONIX) VIAL IV SCH (08:08)
[2021-06-13] MEDS: ENALAPRIL 2.5 MG (VASOTEC) TAB PO SCH (08:11)
[2021-06-13] MEDS: meTOproloL SUCCINATE 50 MG (TOPROL XL) TAB PO SCH (08:11)
[2021-06-13] MEDS: NYSTATIN CREAM (MYCOSTATIN) 30 GM TUBE TP SCH (08:12)
[2021-06-13 08:15] VITALS: BP 110/93
--- NOTE | 2021-06-13 08:39 | Tele-ICU Progress Note ---
Progress Note video rounds completed] 60 y/o DNR with CHF and COPD Has been aggressively diureses No current issues Cardiology following Pulse 60-80 irregular BP 110/93 ssessment/Plan Assessment/Plan Acute resp failure , CHF , encourage IS and BIPAP at night ( low PCT - , not on ABX ) - TO CONT DIURESIS PER CARDS Encephalopathy - improving , repeated abg with resp acidosis and met alkalosi - CPM with bipap and diuresis for now - AAO , lethargic CHF - as per cardiology - lasix on hold with JESSICA 06/09 - resumed .13 - Cr improved - diuresis as per cardiology PAF , RVR - rate controlled usually in 80's, OFF cardizen gtt - AC - xarelto JESSICA - due to agressive diuresis - improved off lasix Cr 0.83 - follow now PLAN: as per cardiology Focused Exam Height, Weight, BMI Height: '" Weight: lbs. oz. kg; 49.52 BMI Method: Laboratory Tests 06/13/21 04:41 TRAVON CORDOVA MD Jun 13, 2021 08:38
--- NOTE | 2021-06-13 09:58 | Cardiology Progress Note ---
Progress Note-Cardiology Events since last exam Date Seen by Provider: Jun 13, 2021 Time Seen by Provider: 09:57 Events since last exam We are following him due to acute on chronic systolic heart failure with mild cardiomyopathy of undetermined etiology. He normally follows with a recordist in [place]. He wants to go home today. His breathing is improved. He has been told he will need home oxygen but he is not sure how he will pay for that since he does not have insurance or income. His lower extremity edema has improved but he has scrotal edema. He tells me he has had significant scrotal edema in the past and this will normally resolve on its own. He denies chest pain, palpitations, or syncope. Certain portions of this document may have been dictated utilizing voice recognition technology. Inherent to this technology, typographical and grammatical errors may exist. As much as I am diligent to identify and correct these mistakes, some errors may remain in the document. Vitals Last set of Vitals Signs Vital Signs 06/11/21 06/13/21 06/13/21 23:35 08:15 08:20 Temp 36.8 Pulse 93 Resp 17 B/P (MAP) 110/93 (99) Pulse Ox 93 O2 Delivery Nasal Cannula O2 Flow Rate 2.00 FiO2 40 Labs Labs Laboratory Tests 06/13/21 04:41 Exam Vital Signs Vital Signs Date Time Temp Pulse Resp B/P (MAP) Pulse Ox O2 Delivery O2 Flow Rate FiO2 06/13/21 08:20 93 Nasal Cannula 2.00 06/13/21 08:15 36.8 93 17 110/93 (99) 06/11/21 23:35 40 Physical Exam General: Alert. No acute distress. He is morbidly obese. Eye: No xanthelasma. HENT: Normocephalic. Neck: Jugular venous pressure does not appear elevated. Respiratory: Diffuse scattered wheezes. Respirations are non-labored. Breath sounds are equal. Symmetrical chest wall expansion. Cardiovascular: Normal rate. Irregular rhythm. No murmur. No gallop. 1+ bilateral pretibial edema with venous stasis changes. He has significant scrotal edema. Gastrointestinal: Soft. Normal bowel sounds. Skin: Warm. Dry. Neurologic: Alert and oriented to person, place, time. Cranial nerves 3-11 grossly intact. Psychiatric: Cooperative. Appropriate mood & affect. Labs Laboratory Tests Test 06/12/21 10:51 06/12/21 15:06 06/12/21 21:44 06/13/21 04:41 Range/Units Glucometer 110 137 H 134 H 70-110 MG/DL White Blood Count 7.4 4.3-11.0 10^3/uL Red Blood Count 4.45 4.30-5.52 10^6/uL Hemoglobin 11.2 L 13.3-17.7 g/dL Hematocrit 37 L 40-54 % Mean Corpuscular Volume 84 80-99 fL Mean Corpuscular Hemoglobin 25 25-34 pg Mean Corpuscular Hemoglobin Concent 30 L 32-36 g/dL Red Cell Distribution Width 19.9 H 10.0-14.5 % Platelet Count 203 130-400 10^3/uL Mean Platelet Volume 9.8 9.0-12.2 fL Immature Granulocyte % (Auto) 0 % Neutrophils (%) (Auto) 67 42-75 % Lymphocytes (%) (Auto) 18 12-44 % Monocytes (%) (Auto) 12 0-12 % Eosinophils (%) (Auto) 2 0-10 % Basophils (%) (Auto) 1 0-10 % Neutrophils # (Auto) 4.9 1.8-7.8 10^3/uL Lymphocytes # (Auto) 1.4 1.0-4.0 10^3/uL Monocytes # (Auto) 0.9 0.0-1.0 10^3/uL Eosinophils # (Auto) 0.2 0.0-0.3 10^3/uL Basophils # (Auto) 0.1 0.0-0.1 10^3/uL Immature Granulocyte # (Auto) 0.0 0.0-0.1 10^3/uL Sodium Level 137 135-145 MMOL/L Potassium Level 3.7 3.6-5.0 MMOL/L Chloride Level 96 L 98-107 MMOL/L Carbon Dioxide Level 31 21-32 MMOL/L Anion Gap 10 5-14 MMOL/L Blood Urea Nitrogen 17 7-18 MG/DL Creatinine 0.80 0.60-1.30 MG/DL Estimat Glomerular Filtration Rate 99 BUN/Creatinine Ratio 21 Glucose Level 150 H 70-105 MG/DL Calcium Level 8.7 8.5-10.1 MG/DL Magnesium Level 1.7 1.6-2.4 MG/DL Diagnosis/Problems Diagnosis/Problems (1) Acute on chronic congestive heart failure Status: Acute Assessment & Plan: He is symptomatically improved. He is on metoprolol succinate. For unclear reasons, he has not been taking an MIMI inhibitor at home. This will need to be addressed by his regular recordist at the outside facility following discharge. Since he might be discharged to home today, I am hesitant to add MIMI inhibitor or ARB at this point in time. (2) Cardiomyopathy Assessment & Plan: He has mild left ventricular systolic dysfunction noted on his echocardiogram during this admission. He denies any previous history of coronary artery disease. We will continue metoprolol succinate. As above, he may also be a good candidate for MIMI inhibitor or ARB but this can be done by his regular recordist in [place] after discharge. (3) Persistent atrial fibrillation Assessment & Plan: As far as he can recall, he has been in atrial fibrillation for quite some time. He has been taking rivaroxaban for stroke prophylaxis and diltiazem for rate control. I suspect this may be permanent atrial fibrillation but since we have not seen him in the past, for the time being I will notate this as persistent atrial fibrillation. I do not see any strong indications for antiarrhythmic drug at this time. (4) Primary hypertension Assessment & Plan: Blood pressures are well controlled on the present medication. (5) Type 2 diabetes mellitus with complication Assessment & Plan: This is being managed by the hospitalist. I have taken the liberty of adding an HbA1c and lipid panel to previous labs. He may benefit fr om statin therapy but this could also be addressed as an outpatient. (6) Morbid obesity Status: Chronic Assessment & Plan: He needs to work on weight loss. (7) Cigarette smoker Assessment & Plan: Smoking cessation was advised. I told the patient that if he continues to smoke and is on home oxygen, this could be quite dangerous. Problem Qualifiers (1) Acute on chronic congestive heart failure: Heart failure type: diastolic Qualified Codes: I50.33 - Acute on chronic diastolic (congestive) heart failure TEE LIRIANO JR, MD Jun 13, 2021 09:58
[2021-06-13 10:18] LABS: TRIGLYCERIDES 47 MG/DL (<150); VLDL CHOLESTEROL 9 MG/DL (5-40)
[2021-06-13 10:23] LABS: CHOLESTEROL 124 MG/DL (< 200); HDL CHOLESTEROL 41 MG/DL (40-60)
[2021-06-13 11:39] VITALS: BP 103/82
--- NOTE | 2021-06-13 12:33 | Physical Therapy Daily Note ---
PT Daily Note-Current Subjective Patient sitting on the edge of the bed upon PT arrival, agreeable to treatment. Patient reports 0/10 pain currently. Transfers SCALE: Activities may be completed with or without assistive devices. 7-Epthloyetv-wqvabay completes the activity by him/herself with no assistance from a helper. 5-Set-up or Clean-up Assistance-helper sets up or cleans up; patient completes activity. [place] assists only prior to or following the activity. 4-Supervision or Touching Assistance-helper provides verbal cues and/or touching/steadying and/or contact guard assistance as patient completes activity. Assistance may be provided throughout the activity or intermittently. 3-Partial/Moderate Assistance-helper does LESS THAN HALF the effort. [place] lifts, holds or supports trunk or limbs, but provides less than half the effort. 2-Substantial/Maximal Assistance-helper does MORE THAN HALF the effort. [place] lifts or holds trunk or limbs and provides more than half the effort. 3-Mktywdwcz-poifjf does ALL the effort. Patient does none of the effort to complete the activity. Or, the assistance of 2 or more helpers is required for the patient to complete the activity. If activity was not attempted, code reason: 7-Patient Refused. 9-Not Applicable-not attempted and the patient did not perform the activity before the current illness, exacerbation or injury. 10-Not Attempted due to Environmental Limitations-(lack of equipment, weather restraints, etc.). 88-Not Attempted due to Medical Conditions or Safety Concerns. Roll Left & Right (QC): 5 Sit to Lying (QC): 5 Lying to Sitting/Side of Bed(Q: 5 Sit to Stand (QC): 5 Chair/Unv-gl-Jfems Xfer(QC): 5 Gait Training Does the Patient Walk?: Yes Distance: 360 feet Walk 10 feet (QC): 5 Walk 50 ft with 2 Turns(QC): 5 Walk 150 ft (QC): 5 Gait Assistive Device: FWW Assessment Current Status: Hold Per Dr/Nursing, Good Progress Patient tolerated treatment well. Reports he fells much better today and feels like walking more. Patient performs all observed bed mobility and transfers with Mod I. Patient ambulates 360 feet with FWW, with SBA and verbal cues for progression. Patient in chair post treatment with all needs met, nursing notified, call light in reach. PT Stem Sizer Goals Residential Goals PT Stem Sizer Goals Time Frame: Jun 20, 2021 Roll Left & Right (QC): 6 Sit to Lying (QC): 6 Lying-Sitting on Side/Bed(QC): 6 Sit to Stand (QC): 6 Chair/Avk-de-Tbbkl Xfer(QC): 6 Toilet Transfer (QC): 6 Walk 10 feet (QC): 6 Walk 50ft with 2 Turns (QC): 6 Walk 150 ft (QC): 6 PT Plan Treatment/Plan Treatment Plan: Continue Plan of Care Treatment Plan: Bed Mobility, Education, Functional Activity Mary, Functional Strength, Gait, Safety, Therapeutic Exercise, Transfers Treatment Duration: Jun 20, 2021 Frequency: 6 times per week Estimated Hrs Per Day: .25 hour per day Patient and/or Family Agrees t: Yes Safety Risks/Education Patient Education: Gait Training Teaching Recipient: Patient Teaching Methods: Demonstration, Discussion Response to Teaching: Verbalize Understanding, Return Demonstration Time/GCodes Time In: 905 Time Out: 930 Total Billed Treatment Time: 25 Total Billed Treatment Visit, Gait (2) JESS COTA PT Jun 13, 2021 12:33
--- NOTE | 2021-06-13 22:36 | Discharge Summary ---
Discharge Summary Hospital Course Problems/Dx: (1) Acute respiratory failure with hypoxia and hypercapnia Status: Acute (2) Acute on chronic congestive heart failure Status: Acute Qualifiers: Qualified Codes: I50.33 - Acute on chronic diastolic (congestive) heart failure (3) Cardiomyopathy (4) Persistent atrial fibrillation (5) Primary hypertension (6) Type 2 diabetes mellitus with complication (7) Morbid obesity Status: Chronic (8) Cigarette smoker Hospital Course Date of Admission: Jun 07, 2021 at 01:24 Admission Diagnosis : Acute respiratory failure with hypoxia and hypercapnia Family Physician/Provider: No local physician Date of Discharge: 06/13/21 Discharge Diagnosis: Acute respiratory failure with hypoxia and hypercapnia, acute on chronic heart failure with preserved ejection fraction, persistent atrial fibrillation with rapid ventricular response Hospital Course: Deven Rivera is a 60 year old male with PMH HTN, T2DM, AFib, morbid obesity, who was admitted with acute respiratory failure. He required BiPAP due to hypercapnia. He was also fluid overloaded and treated for heart failure. He had severe lower extremity and scrotal edema. He diuresed well and improved. He was started on oral Lasix. His course was complicated by AFib with RVR. He was continued on Xarelto. He was started on Diltiazem. He was requiring 2 L supplemental oxygen with exertion at the time of discharge. He should follow up with his PCP and human resource assistant. Labs and Pending Lab Test: Laboratory Tests 06/13/21 04:41: White Blood Count 7.4, Red Blood Count 4.45, Hemoglobin 11.2L, Hematocrit 37L, Mean Corpuscular Volume 84, Mean Corpuscular Hemoglobin 25, Mean Corpuscular Hemoglobin Concent 30L, Red Cell Distribution Width 19.9H, Platelet Count 203, Mean Platelet Volume 9.8, Immature Granulocyte % (Auto) 0, Neutrophils (%) (Auto) 67, Lymphocytes (%) (Auto) 18, Monocytes (%) (Auto) 12, Eosinophils (%) (Auto) 2, Basophils (%) (Auto) 1, Neutrophils # (Auto) 4.9, Lymphocytes # (Auto) 1.4, Monocytes # (Auto) 0.9, Eosinophils # (Auto) 0.2, Basophils # (Auto) 0.1, Immature Granulocyte # (Auto) 0.0, Sodium Level 137, Potassium Level 3.7, Chloride Level 96L, Carbon Dioxide Level 31, Anion Gap 10, Blood Urea Nitrogen 17, Creatinine 0.80, Estimat Glomerular Filtration Rate 99, BUN/Creatinine Ratio 21, Glucose Level 150H, Mean Blood Glucose [Pending], Hemoglobin A1c [Pending], Calcium Level 8.7, Magnesium Level 1.7, Triglycerides Level 47, Cholesterol Level 124, LDL Cholesterol Direct 65, VLDL Cholesterol 9, HDL Cholesterol 41 06/13/21 11:47: Glucometer 87 Home Meds Active Potassium Chloride 10 Meq Tab.er.prt 10 Meq PO DAILY 30 Days Furosemide 40 Mg Tablet 40 Mg PO DAILY 30 Days Diltiazem 24Hr ER (Diltiazem HCl) 240 Mg Cap.er.24h 240 Mg PO DAILY 30 Days Xarelto (Rivaroxaban) 20 Mg Tablet 20 Mg PO HS 30 Days LAST FILLED 03/20/2021 #30 30 DAY SUPPLY Reported Metformin HCl 500 Mg Tablet 500 Mg PO BID Lisinopril 2.5 Mg Tablet 2.5 Mg PO DAILY Metoprolol Tartrate 50 Mg Tablet 50 Mg PO BID Assessment/Pt Instructions Take medications as prescribed. Follow up with your PCP and human resource assistant. Return with worsening symptoms. Discharge Planning: <30 minutes discharge planning Discharge Instructions Discharge Diet: Low Sodium Diet Activity as Tolerated: Yes Consultations Cardiology Discharge Physical Examination Vital Signs Vital Signs Date Time Temp Pulse Resp B/P (MAP) Pulse Ox O2 Delivery O2 Flow Rate FiO2 06/13/21 13:22 06/13/21 11:39 36.3 87 30 99 Nasal Cannula 2.00 06/11/21 23:35 40 General Appearance: No Apparent Distress, Chronically ill, Obese Respiratory: No Respiratory Distress, Decreased Breath Sounds Cardiovascular: No Murmur, Irregularly Irregular Gastrointestinal: Normal Bowel Sounds, Non Tender, Soft, Distended Extremity: Non Tender, Pedal Edema, Swelling Skin: Warm/Dry, Other (venous stasis dermatitis) Neurologic/Psychiatric: Alert, Oriented x3, Other (flat affect) Allergies: Coded Allergies: Penicillins (Verified Allergy, Unknown, 06/07/21) Discharge Summary Date of Admission Jun 07, 2021 at 01:24 Date of Discharge Jun 13, 2021 at 13:23 Discharge Date: Jun 13, 2021 Discharge Time: 13:23 Admission Diagnosis Acute on chronic congestive heart failure Consults/Procedures Consulations Cardiology Discharge Diagnosis Acute respiratory failure with hypoxia and hypercapnia Acute on chronic congestive heart failure Paroxysmal atrial fibrillation with rapid ventricular response (1) Acute respiratory failure with hypoxia and hypercapnia Status: Acute (2) Acute on chronic congestive heart failure Status: Acute Qualifiers: Qualified Codes: I50.33 - Acute on chronic diastolic (congestive) heart failure (3) Cardiomyopathy (4) Persistent atrial fibrillation (5) Primary hypertension (6) Type 2 diabetes mellitus with complication (7) Morbid obesity Status: Chronic (8) Cigarette smoker JUAN MCKEON MD Jun 13, 2021 22:35
== END 2021-06-13 13:23 | disposition home or self-care (01) | DRG 291 ==
LOC: ICU 06-07 01:24
PROVIDERS: ADMIT Family Medicine; ATTEND Internal Medicine
PROC: 5A09457 Assistance with Respiratory Ventilation, 24-96 Consecutive Hours, Continuous Positive Airway Pressure (ICD-10-PCS; principal; 2021-06-07)
DX: I11.0 Hypertensive heart disease with heart failure (principal); J96.02 Acute respiratory failure with hypercapnia; J96.01 Acute respiratory failure with hypoxia; I50.43 Acute on chronic combined systolic (congestive) and diastolic (congestive) heart failure; Z68.42 Body mass index [BMI] 45.0-49.9, adult; G93.40 Encephalopathy, unspecified; N17.9 Acute kidney failure, unspecified; I48.19 Other persistent atrial fibrillation; E66.01 Morbid (severe) obesity due to excess calories; I25.10 Atherosclerotic heart disease of native coronary artery without angina pectoris; F17.210 Nicotine dependence, cigarettes, uncomplicated; I25.2 Old myocardial infarction; I48.0 Paroxysmal atrial fibrillation; E87.5 Hyperkalemia; G47.33 Obstructive sleep apnea (adult) (pediatric); D72.829 Elevated white blood cell count, unspecified; T50.2X5A Adverse effect of carbonic-anhydrase inhibitors, benzothiadiazides and other diuretics, initial encounter; R53.81 Other malaise; I42.9 Cardiomyopathy, unspecified
CPT/HCPCS: 36410; 36415; 71045; 76937; 80048; 80061; 82805; 82947; 83036; 83735; 83880; 84100; 84132; 84145; 85007; 85025; 85027; 93005; 94640; 94660; 94761